=== PATIENT | male | born 1935 | race Caucasian/White ===

== ENCOUNTER → 2018-06-26 | Outpatient (CLI) | payer MEDICARE, BC ==
--- NOTE | 2018-06-26 18:31 | XR ---
EXAMINATION TYPE: XR chest 2V DATE OF EXAM: 06/26/2018 COMPARISON: 02/22/2014 TECHNIQUE: PA and lateral views submitted. HISTORY: Cough and congestion FINDINGS: Heart is enlarged and is atherosclerotic change aorta. Cardiac device seen. Coarsened interstitium se en. No pleural effusion or consolidation. Diffuse osteopenia noted. Vascular calcification seen. Dege nerative change spine. Ectasia of the aorta. Arthropathy of the shoulders. IMPRESSION: 1. Coarsened interstitium may been the basis of chronic interstitial lung disease such as pulmonary f ibrosis. Correlate clinically to exclude interstitial pneumonitis. No definite focal area of consolid ative process.
== END | disposition home or self-care (01) ==
LOC: RADXRMAIN 15:58
PROVIDERS: ATTEND Internal Medicine
DX: R05 Cough (principal); J44.9 Chronic obstructive pulmonary disease, unspecified
CPT/HCPCS: 71046

== ENCOUNTER 2018-08-24 18:28 | Inpatient (IN) | payer MEDICARE, BC ==
[2018-08-24] MEDS ORDERED: IPRATROPIUM-ALBUTEROL 3 ML NEB INHALATION STA (19:31)
[2018-08-24] MEDS ORDERED: SODIUM CHLORIDE 0.9% 1,000 ML IV STA (19:31)
[2018-08-24] MEDS ORDERED: PANTOPRAZOLE 40 MG/10 ML VIAL IVP STA (19:31)
[2018-08-24] MEDS ORDERED: methylPREDNISolone SOD SUCCI 125 MG/2 ML VIAL IV STA (19:31)
[2018-08-24] MEDS ORDERED: IPRATROPIUM-ALBUTEROL 3 ML NEB INHALATION PRN (19:31)
--- NOTE | 2018-08-24 19:33 | ED ---
Weakness HPI - General Chief complaint: Weakness Stated complaint: loss of appetite, coughing up blood, falls Time Seen by Provider: 08/24/18 19:31 Source: patient, family, RN notes reviewed, old records reviewed Mode of arrival: wheelchair Limitations: physical limitation - History of Present Illness Initial comments: This is a 83-year-old male the ER for evaluation. Patient resents today for evaluation of hemoptysis, coughing up blood. Patient is on blood thinners, Coumadin. No recent Coumadin evaluation or checkup. No recent travel history no sick contacts. Does admit to mild shortness of breath and weakness. MD Complaint: generalized weakness Location: generalized Severity: moderate Severity scale (1-10): 6 Quality: aching Consistency: constant Improves with: none Worsens with: none Context: history of similar Associated Symptoms: nausea/vomiting, shortness of breath - Related Data Home Medications Medication Instructions Recorded Confirmed Finasteride [Proscar] 5 mg PO PC-SUPPER 01/10/14 08/24/18 Lisinopril-Hctz 20-12.5 mg 1 each PO DAILY 01/10/14 08/24/18 [Zestoretic 20-12.5] Tamsulosin HCl [Flomax] 0.4 mg PO AC-SUPPER 01/10/14 08/24/18 Warfarin [Coumadin] 5 mg PO MOTUWETHFRSA 01/10/14 08/24/18 amLODIPine BESYLATE [Norvasc] 5 mg PO DAILY 01/10/14 08/24/18 metFORMIN HCL [Glucophage] 500 mg PO DAILY 01/10/14 08/25/18 Allopurinol [Zyloprim] 100 mg PO DAILY 08/24/18 08/24/18 Furosemide [Lasix] 20 mg PO DAILY 08/24/18 08/24/18 Spironolactone [Aldactone] 12.5 mg PO Q48H 08/24/18 08/24/18 Allergies Allergy/AdvReac Type Severity Reaction Status Date / Time No Known Allergies Allergy Verified 08/24/18 20:03 Review of Systems ROS Statement: Those systems with pertinent positive or pertinent negative responses have been documented in the HPI. ROS Other: All systems not noted in ROS Statement are negative. Past Medical History Past Medical History: Coronary Artery Disease (CAD), COPD, CVA/TIA, Memory Impairment Additional Past Medical History / Comment(s): mACULAR DEGENERATION, home oxygen as needed History of Any Multi-Drug Resistant Organisms: None Reported Past Surgical History: Cholecystectomy, Heart Catheterization, Pacemaker Additional Past Surgical History / Comment(s): PTCA Past Anesthesia/Blood Transfusion Reactions: No Reported Reaction Past Psychological History: Anxiety Smoking Status: Current every day smoker Past Alcohol Use History: None Reported Past Drug Use History: None Reported - Past Family History Father Additional Family Medical History / Comment(s): per pt's daughter the grandfather of old age General Exam Limitations: physical limitation General appearance: alert, in no apparent distress Head exam: Present: atraumatic, normocephalic, normal inspection Eye exam: Present: normal appearance, PERRL, EOMI. Absent: scleral icterus, c onjunctival injection, periorbital swelling ENT exam: Present: normal exam, mucous membranes moist Neck exam: Present: normal inspection. Absent: tenderness, meningismus, lymphadenopathy Respiratory exam: Present: normal lung sounds bilaterally. Absent: respiratory distress, wheezes, rales, rhonchi, stridor Cardiovascular Exam: Present: regular rate, normal rhythm, normal heart sounds. Absent: systolic murmur, diastolic murmur, rubs, gallop, clicks GI/Abdominal exam: Present: soft, normal bowel sounds. Absent: distended, tenderness, guarding, rebound, rigid Extremities exam: Present: normal inspection, full ROM, normal capillary refill. Absent: tenderness, pedal edema, joint swelling, calf tenderness Back exam: Present: normal inspection Neurological exam: Present: alert, oriented X3, CN II-XII intact Psychiatric exam: Present: normal affect, normal mood Skin exam: Present: warm, dry, intact, normal color. Absent: rash Course Vital Signs 08/24/18 08/24/18 08/24/18 19:22 20:41 20:57 Temperature 97.4 F L Pulse Rate 76 64 60 Respiratory 16 Rate Blood Pressure 72/47 O2 Sat by Pulse 87 L Oximetry 08/24/18 08/24/18 08/24/18 21:27 22:46 23:22 Temperature Pulse Rate 78 61 Respiratory 16 16 Rate Blood Pressure 100/56 88/43 89/38 O2 Sat by Pulse 97 92 L Oximetry 08/24/18 08/24/18 23:32 23:40 Temperature Pulse Rate Respiratory Rate Blood Pressure 90/37 90/37 O2 Sat by Pulse Oximetry - Reevaluation(s) Reevaluation #1: Medical record is reviewed Patient was given treatment with hemoptysis secondary to elevated INR Patient will be given diuresis and continued breathing treatments for monitoring of cardiopulmonary status Medical Decision Making - Medical Decision Making 83 male the ER for evaluation of shortness of breath and weakness. Hypoxia and CHF. Patient will be admitted - Lab Data Result diagrams: 08/25/18 04:39 08/25/18 04:39 Lab Results 08/24/18 08/24/18 08/24/18 Range/Units 20:05 20:05 20:05 WBC 9.7 (3.8-10.6) k/uL RBC 5.10 (4.30-5.90) m/uL Hgb 15.6 (13.0-17.5) gm/dL Hct 47.4 (39.0-53.0) % MCV 92.9 (80.0-100.0) fL MCH 30.6 (25.0-35.0) pg MCHC 33.0 (31.0-37.0) g/dL RDW 15.9 H (11.5-15.5) % Plt Count 288 (150-450) k/uL Neutrophils % 83 % Lymphocytes % 10 % Monocytes % 5 % Eosinophils % 1 % Basophils % 0 % Neutrophils # 8.0 H (1.3-7.7) k/uL Lymphocytes # 1.0 (1.0-4.8) k/uL Monocytes # 0.5 (0-1.0) k/uL Eosinophils # 0.1 (0-0.7) k/uL Basophils # 0.0 (0-0.2) k/uL PT (9.0-12.0) sec INR (<1.2) APTT (22.0-30.0) sec Sodium 137 (137-145) mmol/L Potassium 2.8 L (3.5-5.1) mmol/L Chloride 92 L (98-107) mmol/L Carbon Dioxide 35 H (22-30) mmol/L Anion Gap 10 mmol/L BUN 54 H (9-20) mg/dL Creatinine 2.44 H (0.66-1.25) mg/dL Est GFR (CKD-EPI)AfAm 27 (>60 ml/min/1.73 sqM) Est GFR (CKD-EPI)NonAf 23 (>60 ml/min/1.73 sqM) Glucose 136 H (74-99) mg/dL Lactic Ac Sepsis Rflx Plasma Lactic Acid Duncan 3.1 H* (0.7-2.0) mmol/L Calcium 8.9 (8.4-10.2) mg/dL Phosphorus 3.8 (2.5-4.5) mg/dL Magnesium 1.9 (1.6-2.3) mg/dL Total Bilirubin 1.5 H (0.2-1.3) mg/dL AST 21 (17-59) U/L ALT 13 L (21-72) U/L Alkaline Phosphatase 100 (38-126) U/L Troponin I (0.000-0.034) ng/mL NT-Pro-B Natriuret Pep pg/mL Total Protein 7.3 (6.3-8.2) g/dL Albumin 3.2 L (3.5-5.0) g/dL TSH 2.800 (0.465-4.680) mIU/L 08/24/18 08/24/18 08/24/18 Range/Units 20:05 20:05 20:05 WBC (3.8-10.6) k/uL RBC (4.30-5.90) m/uL Hgb (13.0-17.5) gm/dL Hct (39.0-53.0) % MCV (80.0-100.0) fL MCH (25.0-35.0) pg MCHC (31.0-37.0) g/dL RDW (11.5-15.5) % Plt Count (150-450) k/uL Neutrophils % % Lymphocytes % % Monocytes % % Eosinophils % % Basophils % % Neutrophils # (1.3-7.7) k/uL Lymphocytes # (1.0-4.8) k/uL Monocytes # (0-1.0) k/uL Eosinophils # (0-0.7) k/uL Basophils # (0-0.2) k/uL PT 104.8 H (9.0-12.0) sec INR >10.0 H* (<1.2) APTT 54.6 H (22.0-30.0) sec Sodium (137-145) mmol/L Potassium (3.5-5.1) mmol/L Chloride (98-107) mmol/L Carbon Dioxide (22-30) mmol/L Anion Gap mmol/L BUN (9-20) mg/dL Creatinine (0.66-1.25) mg/dL Est GFR (CKD-EPI)AfAm (>60 ml/min/1.73 sqM) Est GFR (CKD-EPI)NonAf (>60 ml/min/1.73 sqM) Glucose (74-99) mg/dL Lactic Ac Sepsis Rflx Plasma Lactic Acid Duncan (0.7-2.0) mmol/L Calcium (8.4-10.2) mg/dL Phosphorus (2.5-4.5) mg/dL Magnesium (1.6-2.3) mg/dL Total Bilirubin (0.2-1.3) mg/dL AST (17-59) U/L ALT (21-72) U/L Alkaline Phosphatase (38-126) U/L Troponin I 0.028 (0.000-0.034) ng/mL NT-Pro-B Natriuret Pep 1550 pg/mL Total Protein (6.3-8.2) g/dL Albumin (3.5-5.0) g/dL TSH (0.465-4.680) mIU/L 08/24/18 Range/Units 20:47 WBC (3.8-10.6) k/uL RBC (4.30-5.90) m/uL Hgb (13.0-17.5) gm/dL Hct (39.0-53.0) % MCV (80.0-100.0) fL MCH (25.0-35.0) pg MCHC (31.0-37.0) g/dL RDW (11.5-15.5) % Plt Count (150-450) k/uL Neutrophils % % Lymphocytes % % Monocytes % % Eosinophils % % Basophils % % Neutrophils # (1.3-7.7) k/uL Lymphocytes # (1.0-4.8) k/uL Monocytes # (0-1.0) k/uL Eosinophils # (0-0.7) k/uL Basophils # (0-0.2) k/uL PT (9.0-12.0) sec INR (<1.2) APTT (22.0-30.0) sec Sodium (137-145) mmol/L Potassium (3.5-5.1) mmol/L Chloride (98-107) mmol/L Carbon Dioxide (22-30) mmol/L Anion Gap mmol/L BUN (9-20) mg/dL Creatinine (0.66-1.25) mg/dL Est GFR (CKD-EPI)AfAm (>60 ml/min/1.73 sqM) Est GFR (CKD-EPI)NonAf (>60 ml/min/1.73 sqM) Glucose (74-99) mg/dL Lactic Ac Sepsis Rflx Y Plasma Lactic Acid Duncan (0.7-2.0) mmol/L Calcium (8.4-10.2) mg/dL Phosphorus (2.5-4.5) mg/dL Magnesium (1.6-2.3) mg/dL Total Bilirubin (0.2-1.3) mg/dL AST (17-59) U/L ALT (21-72) U/L Alkaline Phosphatase (38-126) U/L Troponin I (0.000-0.034) ng/mL NT-Pro-B Natriuret Pep pg/mL Total Protein (6.3-8.2) g/dL Albumin (3.5-5.0) g/dL TSH (0.465-4.680) mIU/L - EKG Data -: EKG Interpreted by Me (Paced rhythm rate of 65 QRS 70, QTc 540) - Radiology Data Radiology results: report reviewed (Chest x-ray positive for CHF), image reviewed Critical Care Time Critical Care Time: Yes Total Critical Care Time: 31 Disposition Clinical Impression: Hemoptysis, COPD exacerbation, Hypoxia, Dehydration, Hypokalemia, Weakness, ARF (acute renal failure), CHF (congestive heart failure) Disposition: ADMITTED IP TO THIS HOSP Condition: Fair Is patient prescribed a controlled substance at d/c from ED?: No
[2018-08-24 20:33] LABS: Basophils % (A) 0 %; Eosinophils # (A) 0.1 k/uL (0-0.7); Eosinophils % (A) 1 %; HCT 47.4 % (39.0-53.0); HGB 15.6 gm/dL (13.0-17.5); Lymphocytes % (A) 10 %; MCH 30.6 pg (25.0-35.0); MCV 92.9 fL (80.0-100.0); Mean Platelet Volume 6.8; Monocytes # (A) 0.5 k/uL (0-1.0); Monocytes % (A) 5 %; Neutrophils % (A) 83 %; Platelet Count 288 k/uL (150-450); RDW 15.9 % (11.5-15.5); WBC 9.7 k/uL (3.8-10.6)
[2018-08-24 20:43] LABS: Albumin 3.2 g/dL (3.5-5.0); Calcium 8.9 mg/dL (8.4-10.2); Magnesium 1.9 mg/dL (1.6-2.3); Phosphorus 3.8 mg/dL (2.5-4.5); Potassium 2.8 mmol/L (3.5-5.1); Total Bilirubin 1.5 mg/dL (0.2-1.3); Total Protein 7.3 g/dL (6.3-8.2)
[2018-08-24 20:50] LABS: Prothrombin Time 104.8 sec (9.0-12.0)
[2018-08-24 20:52] LABS: INR >10.0 (<1.2); Partial Thromboplastin Time 54.6 sec (22.0-30.0)
[2018-08-24] MEDS ORDERED: POTASSIUM CHLORIDE ER 20 MEQ TAB.ER PO STA (21:09)
[2018-08-24] MEDS ORDERED: POTASSIUM CHLORIDE ER 10 MEQ TAB.ER.PRT PO STA (21:09)
[2018-08-24] MEDS ORDERED: POTASSIUM CHLORIDE 20 MEQ in WATER FOR INJECTION 1 100ML.BAG IVPB STA (21:09)
[2018-08-24] MEDS ORDERED: PHYTONADIONE ORAL 5 MG/5 ML ORAL.SYRG PO STA (21:09)
--- NOTE | 2018-08-24 21:18 | XR ---
EXAMINATION TYPE: XR chest 2V DATE OF EXAM: 08/24/2018 COMPARISON: 06/26/2018 HISTORY: Weakness TECHNIQUE: Frontal and lateral views of the chest are obtained. FINDINGS: Heart is enlarged. There is some mild infiltrate or atelectasis at the right lung base. Th ere is coarsening of the lung markings. There is no gross heart failure. There is a left axillary pac emaker. IMPRESSION: There is new Mild atelectasis at the right lung base compared to old exam. Pulmonary fibr osis. No overt heart failure.
[2018-08-24] MEDS: SODIUM CHLORIDE 0.9% 1,000 ML IV SCH (22:12)
[2018-08-24 22:32] LABS: Appearance,Urine Cloudy (Clear); Bilirubin,Urine Negative (Negative); Blood,Urine Trace (Negative); Color,Urine Dark Brown; Glucose,Urine (UA) Negative (Negative); Hyaline Casts,Urine 27 /lpf (0-2); Ketones,Urine Negative (Negative); Leukocyte Esterase,Urine Negative (Negative); Mucus,Urine Occasional /hpf; Nitrite,Urine Negative (Negative); Protein,Urine Trace (Negative); RBC,Urine 6 /hpf (0-5); Specific Gravity,Urine 1.018 (1.001-1.035); Squamous Epithelial Cell,Urine 1 /hpf (0-4); WBC,Urine 1 /hpf (0-5)
[2018-08-24] MEDS ORDERED: SODIUM CHLORIDE 0.9% 1,000 ML IV ONE (22:57)
[2018-08-24 23:56] LABS: Glucose,Whole Blood 126 mg/dL (75-99)
--- NOTE | 2018-08-25 00:26 | P.HPIM ---
History of Present Illness H&P Date: 08/25/18 Chief Complaint: lethargy and increased ability 83-year-old male with history of multiple strokes questionable A. fib status post pacemaker on Coumadin History is obtained by talking to patient daughter's patient is unable to provide any meaningful history at this point whether patient was able to deny any chest pain or trouble breathing at this time. Reliability is questionable. The daughter's patient lives alone he is not compliant with medications. He was brought to the hospital due to increased ability and lethargy. Patient daughter's reports hemoptysis and coughing for over a year now along with significant amount of weight loss. Patient has also been complaining of dysphagia and odynophagia with decreased by mouth intake. She reports anoscopy done more than 8 years ago and was normal per her report.patient has history of heavy smoking he quit around 2-3 weeks ago as he was unable to smoke anymore due to breathing difficulties he is on 2.5 L of home oxygen however he is not using. Patient daughter reports hemoptysis consistent of bright red sometimes dark clotted chunks of blood. Patient also has DuoNeb's at home as a rescue nebulizer. She also reported voice changes over the past year but she is not sure was done for that. Patient lives alone and is very hard to get him in to appointments and to be compliant with his medications and care. Due to patient's resistant help. However overall he's been having progressive decline for which she was brought to the hospital for further evaluation today. She also reports frequent falling he is on Coumadin and she doesn't know the doses that and how much the patient is taking at this time. In the ED patientwas initially hypoxic improved with nasal cannula oxygen. He was also hypotensive responding to IV fluid boluses with normal saline 1 L at time. Review of Systems ROS unobtainable: due to mental status Past Medical History Past Medical History: Coronary Artery Disease (CAD), COPD, CVA/TIA, Memory Impairment Additional Past Medical History / Comment(s): mACULAR DEGENERATION, home oxygen as needed History of Any Multi-Drug Resistant Organisms: None Reported Past Surgical History: Cholecystectomy, Heart Catheterization, Pacemaker Additional Past Surgical History / Comment(s): PTCA Past Anesthesia/Blood Transfusion Reactions: No Reported Reaction Past Psychological History: Anxiety Smoking Status: Current every day smoker Past Alcohol Use History: None Reported Past Drug Use History: None Reported - Past Family History Father Additional Family Medical History / Comment(s): per pt's daughter the grandfather of old age Medications and Allergies Home Medications Medication Instructions Recorded Confirmed Type Finasteride [Proscar] 5 mg PO PC-SUPPER 01/10/14 08/24/18 History Lisinopril-Hctz 20-12.5 mg 1 each PO DAILY 01/10/14 08/24/18 History [Zestoretic 20-12.5] Tamsulosin HCl [Flomax] 0.4 mg PO AC-SUPPER 01/10/14 08/24/18 History Warfarin [Coumadin] 5 mg PO MOTUWETHFRSA 01/10/14 08/24/18 History amLODIPine BESYLATE [Norvasc] 5 mg PO DAILY 01/10/14 08/24/18 History metFORMIN HCL [Glucophage] 500 mg PO BID 01/10/14 08/24/18 History Allopurinol [Zyloprim] 100 mg PO DAILY 08/24/18 08/24/18 History Furosemide [Lasix] 20 mg PO DAILY 08/24/18 08/24/18 History Spironolactone [Aldactone] 12.5 mg PO Q48H 08/24/18 08/24/18 History Allergies Allergy/AdvReac Type Severity Reaction Status Date / Time No Known Allergies Allergy Verified 08/24/18 20:03 Physical Exam Vitals: Vital Signs Temp Pulse Resp BP Pulse Ox 08/24/18 22:46 61 16 88/43 92 L 08/24/18 21:27 78 16 100/56 97 08/24/18 20:57 60 08/24/18 20:41 64 08/24/18 19:22 97.4 F L 76 16 72/47 87 L Intake and Output 08/24/18 08/24/18 08/25/18 14:59 22:59 06:59 Output Total 20 Balance -20 Output: Urine 20 Other: Weight 80.739 kg Constitutional: patient opens eyes to verbal stimulation and engages and minimal conversation , lethargic but easily arousable, does not seem to be in any acute distress Eyes: Anicteric sclerae, moist conjunctiva, no lid-lag Pupils equal round reactive to light ENMT: NC/AT Oropharynx dry mucous membranes and dried blood in the oropharynxno exudate Neck: Supple, FROM, no masses, or JVD No carotid bruits No thyromegaly Lungs: bowel chest, diminished breath sounds at lung bases>poor effort from the patient increased tone of percussion Normal respiratory effort, no accessory muscle use Cardiovascular: Heart distant heart sounds regular rate and rhythm systolic murmurs, no gallops, or rubs slightly swollen and rright leg compared to left leg Abdominal: Soft Nontender, no guarding, rebound or rigidity Abdomen moving with respiration Normoactive bowel sounds No hepatomegaly, No splenomegaly No palpable mass No abdominal wall hernia noted Skin: Normal temperature, tone, texture, turgor No induration No subcutaneous nodules chronic skin changes of bilateral arreola with dry skin. right leg warm to the touch with increase reddness compared to left leg Extremities: No digital cyanosis No clubbing Pedal pulses intact and symmetrical Radial pulses intact and symmetrical Tenderness to palpation over the right calf Psychiatric: lethargic but easily arousable unable to assess otherwiset Neuro exam overall is nonfocal the patient failed to cooperate fully due to mental status Lymphatics: no palpable cervical or supraclavicular , or inguinal lymph nodes Results CBC & Chem 7: 08/24/18 20:05 08/24/18 20:05 Labs: Abnormal Lab Results - Last 24 Hours (Table) 08/24/18 08/24/18 08/24/18 Range/Units 20:05 20:05 20:05 RDW 15.9 H (11.5-15.5) % Neutrophils # 8.0 H (1.3-7.7) k/uL PT (9.0-12.0) sec INR (<1.2) APTT (22.0-30.0) sec Potassium 2.8 L (3.5-5.1) mmol/L Chloride 92 L (98-107) mmol/L Carbon Dioxide 35 H (22-30) mmol/L BUN 54 H (9-20) mg/dL Creatinine 2.44 H (0.66-1.25) mg/dL Glucose 136 H (74-99) mg/dL Plasma Lactic Acid Duncan 3.1 H* (0.7-2.0) mmol/L Total Bilirubin 1.5 H (0.2-1.3) mg/dL ALT 13 L (21-72) U/L Albumin 3.2 L (3.5-5.0) g/dL Urine Protein (Negative) Urine Blood (Negative) Urine RBC (0-5) /hpf Hyaline Casts (0-2) /lpf Urine Mucus (None) /hpf 08/24/18 08/24/18 Range/Units 20:05 21:55 RDW (11.5-15.5) % Neutrophils # (1.3-7.7) k/uL PT 104.8 H (9.0-12.0) sec INR >10.0 H* (<1.2) APTT 54.6 H (22.0-30.0) sec Potassium (3.5-5.1) mmol/L Chloride (98-107) mmol/L Carbon Dioxide (22-30) mmol/L BUN (9-20) mg/dL Creatinine (0.66-1.25) mg/dL Glucose (74-99) mg/dL Plasma Lactic Acid Duncan (0.7-2.0) mmol/L Total Bilirubin (0.2-1.3) mg/dL ALT (21-72) U/L Albumin (3.5-5.0) g/dL Urine Protein Trace H (Negative) Urine Blood Trace H (Negative) Urine RBC 6 H (0-5) /hpf Hyaline Casts 27 H (0-2) /lpf Urine Mucus Occasional H (None) /hpf Assessment and Plan Assessment: 83-year-old male with history of stroke, questionable history of A. fib status post pacemaker, diabetes, hypertension. Patient admitted as an inpatient with anticipated length of stay more than 48 hours due to Coumadin toxicity,generalized lethargy, acute kidney injury, acute dehydration, debility, weight loss and hemoptysis. patient lives alone and has daughters think that he is failing to take care of himself is been declining over the past year. With weight loss. Appetite noncompliance with medications. Patient daughter reports more than 1 year history of coughing up blood and weight loss with decreased appetite and changes in his voice. He was brought into the hospital today to the increased debility and lethargy. Plan: acute metabolic encephalopathy secondary to uremia Acute kidney injury secondary to prerenal ATN from dehydration, with oliguria Dehydration secondary to poor by mouth intake secondary to dysphagia Dysphagia and changes in his voice Hemoptysis and weight loss of more than 1 year duration Lactic acidosis secondary to dehydration and poor perfusion Hypotension Coumadin toxicity with supratherapeutic INR Hypokalemia slightly elevated bilirubin possible cellulitis of right leg plan Patient will be admitted stepdown unit for close monitoring Aggressive IV fluid hydration with 2 L normal saline boluses and continue normal saline infusion Follow up labs in the morning Coumadin level reversed with vitamin K check PT/INR in the morning no active overt bleeding Hemoglobin stable possibly will trend down after rehydration due to currently dehydrated status Follow-up renal function and avoid nephrotoxic meds All home blood pressure medications and hold due to hypotension Coumadin on hold Insulin sliding scale Consult GI for dysphagia patient had a colonoscopy 8 years ago was reported to be normal per family Consult ENT due to changes in voice and dysphagia Check computed tomography scan of the chest to rule out lung cancer Family denies any exposure to TB Follow-up lactic acid level Follow-up potassium level replace IV Straight cath showed less than 60 mL of urine was likely due to dehydration versus oliguria consider nephrology consult if no improvement in renal function or urine output closely monitoring for now clinical COPD for which steroids and breathing treatments initiated no focus of infection at this point no antibiotics were initiated Follow-up cultures check venous duplex right leg for DVT IV rocephine for possible cellulitis of right leg Chronic conditions Questionable history of A. fib status post pacemaker, on Coumadin history of multiple strokes diabetes mellitus Hypertension DVT prophylaxis currently supratherapeutic Coumadin on hold Surrogate decision-maker: patient daughter CODE STATUS:no code Discussed with: Patient, ER, RN Anticipated discharge: 48-[address]: SNF A total of 70 minutes was spent on the care of this complex patient more than 50% of the time was spent in counseling and care coordination.
[2018-08-25] MEDS: methylPREDNISolone SOD SUCCI 125 MG/2 ML VIAL IV SCH ×5 (00:57→23:13)
[2018-08-25 04:53] LABS: Basophils % (A) 0 %; Eosinophils % (A) 0 %; HCT 43.9 % (39.0-53.0); HGB 14.5 gm/dL (13.0-17.5); Lymphocytes # (A) 0.3 k/uL (1.0-4.8); Lymphocytes % (A) 4 %; MCH 31.2 pg (25.0-35.0); MCHC 32.9 g/dL (31.0-37.0); MCV 94.6 fL (80.0-100.0); Mean Platelet Volume 6.8; Monocytes # (A) 0.1 k/uL (0-1.0); Monocytes % (A) 1 %; Neutrophils # (A) 6.5 k/uL (1.3-7.7); Neutrophils % (A) 94 %; Platelet Count 243 k/uL (150-450); RBC 4.65 m/uL (4.30-5.90); RDW 15.8 % (11.5-15.5); WBC 6.9 k/uL (3.8-10.6)
[2018-08-25 05:08] LABS: Albumin 2.7 g/dL (3.5-5.0); Calcium 8.1 mg/dL (8.4-10.2); Total Bilirubin 1.3 mg/dL (0.2-1.3); Total Protein 6.4 g/dL (6.3-8.2)
[2018-08-25 05:31] LABS: Potassium 2.7 mmol/L (3.5-5.1)
[2018-08-25] MEDS ORDERED: Potassium Replacement Protocol 1 EACH MISC MISCELLANE PRN (06:04)
[2018-08-25 06:16] LABS: Glucose,Whole Blood 189 mg/dL (75-99)
[2018-08-25] MEDS: POTASSIUM CHLORIDE 10 MEQ in WATER FOR INJECTION 1 100ML.BAG IVPB SCH ×4 (06:21→11:04)
[2018-08-25] MEDS: INSULIN ASPART (NovoLOG) 100 UNIT/ML VIAL SQ SCH ×4 (06:37→20:36)
[2018-08-25 07:13] LABS: INR 3.2 (<1.2); Partial Thromboplastin Time 41.8 sec (22.0-30.0); Prothrombin Time 31.3 sec (9.0-12.0)
[2018-08-25] MEDS: SODIUM CHLORIDE 0.9% 1,000 ML IV SCH ×3 (07:57→20:37)
[2018-08-25] MEDS: IPRATROPIUM-ALBUTEROL 3 ML NEB INHALATION SCH ×4 (08:50→20:06)
[2018-08-25] MEDS ORDERED: PANTOPRAZOLE 40 MG/10 ML VIAL IVP SCH (09:00)
--- NOTE | 2018-08-25 10:40 | US ---
EXAMINATION TYPE: US venous doppler duplex LE RT DATE OF EXAM: 08/25/2018 9:48 AM COMPARISON: NONE CLINICAL HISTORY: r/o DVT, swelling with erythema, red. Right leg swelling, warm, redness SIDE PERFORMED: Right TECHNIQUE: The lower extremity deep venous system is examined utilizing real time linear array sonog [place] with graded compression, doppler sonography and color-flow sonography. VESSELS IMAGED: External Iliac Vein (EIV) Common Femoral Vein Deep Femoral Vein Greater Saphenous Vein * Femoral Vein Popliteal Vein Small Saphenous Vein * Proximal Calf Veins (* superficial vessels) There is normal flow, compressibility, vascular waveforms. Right Leg: Appears negative for DVT IMPRESSION: No evident deep venous thrombosis at or above the right knee, follow-up as indicated
[2018-08-25 11:04] VITALS: BMI 26.4
[2018-08-25] MEDS: POTASSIUM BICARBONATE/CIT AC 20 MEQ TABLET.EFF PO ONE ×2 (11:04→11:21)
[2018-08-25] MEDS: MAGNESIUM SULFATE-D5W PMX 1 GM in DEXTROSE/WATER 1 100ML.BAG IVPB SCH ×2 (11:25→12:49)
--- NOTE | 2018-08-25 11:38 | P.CONS ---
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 History obtained from medical records nursing staff patient unable to provide details not good historian. Family reports weight loss changes in voice and odynophagia dysphagia. Present weight 76 kg. Previous weight 5 years ago was 98 kg. Hemoglobin 15.6. Platelet 288. INR greater than 10 received reversal agents presently 3.2. BUN 54. Creatinine 2.4. Chest x-ray pulmonary fibrosis no heart failure. CT chest abdomen and pelvis ordered results pending. Unsure if he's had previous endoscopic exams. Review of Systems Reviewed in obtained from medical records patient unable to report detailed history Constitutional: Denies fever, chills, sweats, weight gain, positive for unintentional weight loss.. HEENT: Negative for migraines, blurred vision or loss, earaches, drainage, tinnitus, oral mucosal lesions, positive for reports of odynophagia dysphagia. Cardiac: Negative for chest pain, arrhythmias, or palpitation. Respiratory: Negative for shortness of breath, positive reports for hemoptysis and cough, cough.. Gastrointestinal: See HPI for pertinent findings. Genitourinary: Negative for hematuria, urgency, frequency, polyuria, dysuria, or penile discharge. Musculoskeletal: Negative for muscle aches, swelling, arthritis, and arthralgias. Neurologic: Negative for stroke or TIA. Endocrine: Negative for thyroid problems. Skin: Negative for rash or itching. Psychiatric: Negative history for depression and anxietyems ROS unobtainable: due to endotracheal tube, due to mental status Past Medical History Past Medical History: Coronary Artery Disease (CAD), COPD, CVA/TIA, Memory Im pairment Additional Past Medical History / Comment(s): mACULAR DEGENERATION, home oxygen as needed History of Any Multi-Drug Resistant Organisms: None Reported Past Surgical History: Cholecystectomy, Heart Catheterization, Pacemaker Additional Past Surgical History / Comment(s): PTCA Past Anesthesia/Blood Transfusion Reactions: No Reported Reaction Type of Cardiac Device: Permanent Pacemaker Device Placement Date:: unknown Past Psychological History: Anxiety Smoking Status: Current every day smoker Past Alcohol Use History: None Reported Past Drug Use History: None Reported - Past Family History Father Additional Family Medical History / Comment(s): per pt's daughter the grandfather of old age Medications and Allergies Home Medications Medication Instructions Recorded Confirmed Type Finasteride [Proscar] 5 mg PO PC-SUPPER 01/10/14 08/24/18 History Lisinopril-Hctz 20-12.5 mg 1 each PO DAILY 01/10/14 08/24/18 History [Zestoretic 20-12.5] Tamsulosin HCl [Flomax] 0.4 mg PO AC-SUPPER 01/10/14 08/24/18 History Warfarin [Coumadin] 5 mg PO MOTUWETHFRSA 01/10/14 08/24/18 History amLODIPine BESYLATE [Norvasc] 5 mg PO DAILY 01/10/14 08/24/18 History metFORMIN HCL [Glucophage] 500 mg PO DAILY 01/10/14 08/25/18 History Allopurinol [Zyloprim] 100 mg PO DAILY 08/24/18 08/24/18 History Furosemide [Lasix] 20 mg PO DAILY 08/24/18 08/24/18 History Spironolactone [Aldactone] 12.5 mg PO Q48H 08/24/18 08/24/18 History Allergies Allergy/AdvReac Type Severity Reaction Status Date / Time No Known Allergies Allergy Verified 08/24/18 20:03 Physical Exam Vitals: Vital Signs Temp Pulse Pulse Resp BP BP Pulse Ox 08/25/18 08:00 97.8 F 64 19 81/37 94 L 08/25/18 03:50 65 19 08/25/18 03:47 98.6 F 65 19 104/50 94 L 08/25/18 00:06 98.9 F 65 20 93/45 91 L 08/25/18 00:00 65 20 08/24/18 23:40 90/37 08/24/18 23:32 90/37 08/24/18 23:22 89/38 08/24/18 22:46 61 16 88/43 92 L 08/24/18 21:27 78 16 100/56 97 08/24/18 20:57 60 08/24/18 20:41 64 08/24/18 19:22 97.4 F L 76 16 72/47 87 L Intake and Output 08/24/18 08/25/18 08/25/18 22:59 06:59 14:59 Intake Total 50 750 Output Total 20 500 Balance 30 250 Intake: Intake, IV Titration 750 Amount Sodium Chloride 0.9% 1, 750 000 ml @ 125 mls/hr IV . Q8H [facility] Rx#:[id number] Oral 50 Output: Urine 20 500 Other: Voiding Method Indwelling Catheter Indwelling Catheter Weight 80.739 kg 76.5 kg General appearance: The patient is alert, to self in no acute distress little restless.. HET: Head is normocephalic and atraumatic. Pupils are equal and reactive. Oropharynx is clear without lesions. Neck: Supple without lymphadenopathy. Trachea midline. Heart: S1 S2. Regular rate and rhythm. Lungs: No scattered rhonchi upper bases dry cough. Abdomen: Soft, nontender, nondistended with bowel sounds. No peritoneal signs. No palpable organomegaly or masses. Extremities: No edema. [place] clear nisreen urine. Neurological: No focal deficits. Strength and sensation are grossly intact. Results CBC & Chem 7: 08/25/18 04:39 08/25/18 04:39 Labs: Abnormal Lab Results - Last 24 Hours (Table) 08/24/18 08/24/18 08/24/18 Range/Units 20:05 20:05 20:05 RDW 15.9 H (11.5-15.5) % Neutrophils # 8.0 H (1.3-7.7) k/uL Lymphocytes # (1.0-4.8) k/uL PT (9.0-12.0) sec INR (<1.2) APTT (22.0-30.0) sec Potassium 2.8 L (3.5-5.1) mmol/L Chloride 92 L (98-107) mmol/L Carbon Dioxide 35 H (22-30) mmol/L BUN 54 H (9-20) mg/dL Creatinine 2.44 H (0.66-1.25) mg/dL Glucose 136 H (74-99) mg/dL POC Glucose (mg/dL) (75-99) mg/dL Plasma Lactic Acid Duncan 3.1 H* (0.7-2.0) mmol/L Calcium (8.4-10.2) mg/dL Total Bilirubin 1.5 H (0.2-1.3) mg/dL ALT 13 L (21-72) U/L Albumin 3.2 L (3.5-5.0) g/dL Urine Protein (Negative) Urine Blood (Negative) Urine RBC (0-5) /hpf Hyaline Casts (0-2) /lpf Urine Mucus (None) /hpf 08/24/18 08/24/18 08/24/18 Range/Units 20:05 21:55 23:54 RDW (11.5-15.5) % Neutrophils # (1.3-7.7) k/uL Lymphocytes # (1.0-4.8) k/uL PT 104.8 H (9.0-12.0) sec INR >10.0 H* (<1.2) APTT 54.6 H (22.0-30.0) sec Potassium (3.5-5.1) mmol/L Chloride (98-107) mmol/L Carbon Dioxide (22-30) mmol/L BUN (9-20) mg/dL Creatinine (0.66-1.25) mg/dL Glucose (74-99) mg/dL POC Glucose (mg/dL) 126 H (75-99) mg/dL Plasma Lactic Acid Duncan (0.7-2.0) mmol/L Calcium (8.4-10.2) mg/dL Total Bilirubin (0.2-1.3) mg/dL ALT (21-72) U/L Albumin (3.5-5.0) g/dL Urine Protein Trace H (Negative) Urine Blood Trace H (Negative) Urine RBC 6 H (0-5) /hpf Hyaline Casts 27 H (0-2) /lpf Urine Mucus Occasional H (None) /hpf 08/25/18 08/25/18 08/25/18 Range/Units 00:04 04:39 04:39 RDW 15.8 H (11.5-15.5) % Neutrophils # (1.3-7.7) k/uL Lymphocytes # 0.3 L (1.0-4.8) k/uL PT (9.0-12.0) sec INR (<1.2) APTT (22.0-30.0) sec Potassium 2.7 L* (3.5-5.1) mmol/L Chloride (98-107) mmol/L Carbon Dioxide (22-30) mmol/L BUN 51 H (9-20) mg/dL Creatinine 2.06 H (0.66-1.25) mg/dL Glucose 178 H (74-99) mg/dL POC Glucose (mg/dL) (75-99) mg/dL Plasma Lactic Acid Duncan 3.7 H* (0.7-2.0) mmol/L Calcium 8.1 L (8.4-10.2) mg/dL Total Bilirubin (0.2-1.3) mg/dL ALT 18 L (21-72) U/L Albumin 2.7 L (3.5-5.0) g/dL Urine Protein (Negative) Urine Blood (Negative) Urine RBC (0-5) /hpf Hyaline Casts (0-2) /lpf Urine Mucus (None) /hpf 08/25/18 08/25/18 08/25/18 Range/Units 04:39 06:15 06:33 RDW (11.5-15.5) % Neutrophils # (1.3-7.7) k/uL Lymphocytes # (1.0-4.8) k/uL PT 31.3 H (9.0-12.0) sec INR 3.2 H (<1.2) APTT 41.8 H (22.0-30.0) sec Potassium (3.5-5.1) mmol/L Chloride (98-107) mmol/L Carbon Dioxide (22-30) mmol/L BUN (9-20) mg/dL Creatinine (0.66-1.25) mg/dL Glucose (74-99) mg/dL POC Glucose (mg/dL) 189 H (75-99) mg/dL Plasma Lactic Acid Duncan 2.4 H* (0.7-2.0) mmol/L Calcium (8.4-10.2) mg/dL Total Bilirubin (0.2-1.3) mg/dL ALT (21-72) U/L Albumin (3.5-5.0) g/dL Urine Protein (Negative) Urine Blood (Negative) Urine RBC (0-5) /hpf Hyaline Casts (0-2) /lpf Urine Mucus (None) /hpf Microbiology - Last 24 Hours (Table) 08/24/18 21:55 Urine Culture - Preliminary Urine,Catheterized CT scan - abdomen: pending Assessment and Plan (1) Dysphagia Narrative/Plan: 83-year-old male presents with a reported history of unintentional weight loss odynophagia dysphagia hemoptysis. Underlying neoplasm possible motility disorder cannot be excluded. Current Visit: Yes Status: Acute Code(s): R13.10 - DYSPHAGIA, UNSPECIFIED SNOMED Code(s): 24000949 (2) Hemoptysis Current Visit: Yes Status: Acute Code(s): R04.2 - HEMOPTYSIS SNOMED Code(s): 96347637 (3) Decreased oral intake Current Visit: Yes Status: Acute Code(s): R63.8 - OTHER SYMPTOMS AND SIGNS CONCERNING FOOD AND FLUID INTAKE SNOMED Code(s): 740307042 (4) Weight loss, non-intentional Current Visit: Yes Status: Acute Code(s): R63.4 - ABNORMAL WEIGHT LOSS SNOMED Code(s): 599978496 Plan: 1. CT chest abdomen and pelvis will review based on findings we'll consider EGD during this admission once INR 1.8 or less. Patient is not a candidate for inpatient colonoscopy at this time considering his underlying dysphagia odynopha oh. Venous Dopplers reviewed no evidence of DVT. CBC monitoring. 2. GI prophylaxis. Thank you for this kind referral and the opportunity to participate in the care of your patient. This consultation was discussed with Dr. Cox. The impression and plan of care have been directed as dictated.
[2018-08-25 11:46] LABS: Glucose,Whole Blood 135 mg/dL (75-99)
--- NOTE | 2018-08-25 13:04 | CT ---
EXAMINATION TYPE: CT ChestAbdPelvis wo con DATE OF EXAM: 08/25/2018 COMPARISON: Chest radiograph 08/24/2018 HISTORY: 83-year-old male with dysphagia, weight loss, Weakness, COPD, hemoptysis TECHNIQUE: Contiguous axial scanning of the chest, abdomen, and pelvis without IV contrast. Coronal a nd sagittal reconstructions performed. CT DLP: 648.3 mGycm Automated exposure control for dose reduction was used. FINDINGS: Chest: There is prominent motion artifact at the level of the thoracic inlet. Unable to exclude abnormal mur al-based opacity within the upper trachea, refer to axial images 5 and 6. Subcentimeter hypodense nodule right lobe of the thyroid gland. Heart is moderately enlarged. Left anterior chest wall pacemaker generator with right ventricular valentina d. Extensive coronary artery calcifications. Ascending aorta is ectatic at 3.7 cm and upper descending thoracic aorta mildly aneurysmal at 3.4 cm. Moderate to severe atherosclerotic calcifications are present. Large caliber to the main right and left pulmonary arteries at 3.2 and 2.0 cm, respectively, suggesti ng underlying pulmonary arterial hypertension. Scattered nonenlarged mediastinal lymph nodes are present. Borderline sized 1.0 cm lymph node is note d at the right tracheobronchial angle. There is prominent mottled debris within the lower right bronchus intermedius extending into the righ t bronchus base with. Trace right pleural effusion is demonstrated. There is background of moderate to advanced emphysema. Mild septal lines and some patchy dependent bi lateral lateral opacities. ABDOMEN: Noncontrast appearance of the liver, adrenal glands, spleen, and atrophic pancreas are no gross adeno richard. Bilateral renal lesions, approximately 3 on the right measuring 3.6 cm, 2.6 cm, and 1.4 cm. These are indeterminate on this noncontrast study but probably represent cysts. There is one tiny lesion in th e upper pole left kidney measuring 1.4 cm. No dilated small bowel, free fluid, or free air. However, mild diffuse anasarca type changes present with strandy edema in the subcutaneous adipose tissues and intra-abdominal fat. Lack of IV contrast and motion artifacts limit assessment for lymphadenopathy. No obvious lymphadenop athy seen. Tiny fatty umbilical hernia. Scattered mild stool. Sigmoid diverticulosis. No pericolic inflammatory change seen. Moderate to severe atherosclerotic calcifications within the abdominal aorta and iliac arteries. 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 Infrarenal abdominal aorta is aneurysmal at 3.5 cm. 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 Left internal iliac artery is aneurysmal at 2.3 cm. Right common iliac artery is diffusely aneurysmal at 2.0 cm and right internal iliac artery at 1.7 cm . Pelvis: Circumferential bladder wall thickening. Zavala catheter is in place. Prominent nondependent air in th e bladder lumen. There is trace pelvic free fluid. No pelvic lymphadenopathy seen. Bones: Degenerative changes of the hips and throughout the visualized spine. IMPRESSION: CHEST: 1. CARDIOMEGALY, CAD, PULMONARY ARTERIAL HYPERTENSION, SEPTAL LINES, MILD DIFFUSE ANASARCA CHANGE, AN D TRACE RIGHT EFFUSION. CORRELATE FOR MILD CHF WITH PULMONARY VASCULAR CONGESTION. 2. HOWEVER, THERE IS PROMINENT DEBRIS WITHIN THE RIGHT BRONCHUS INTERMEDIUS AND BRONCHUS BASALIS. POO RLY CLEARED SECRETIONS VERSUS IMMINENT ASPIRATION ARE IN THE DIFFERENTIAL. 3. MOTION ARTIFACT AT THE THORACIC INLET. UNABLE TO EXCLUDE A MURAL BASED LESION ALONG THE UPPER TRAC HEAL WALL, REFER TO AXIAL IMAGE 5 AND 6. DIRECT VISUALIZATION MAY BE INDICATED VERSUS CONTRAST-ENHANC ED CT OF THE NECK WHEN PATIENT'S CONDITION HAS IMPROVED. ABDOMEN: 4. DIFFUSELY ANEURYSMAL AORTA (DESCENDING THORACIC 3.4 CM, UPPER ABDOMINAL 3.3 CM, INFRARENAL 3.5 CM) . 5. ADDITIONAL ANEURYSMS OF THE ILIAC ARTERIES ABOVE, LARGEST ANEURYSM OF THE LEFT COMMON ILIAC ART MICHAEL AT 3.6 CM AND LEFT INTERNAL ILIAC ARTERY AT 2.3 CM. SEE ABOVE. 6. BILATERAL RENAL LESIONS MEASURING UP TO 3.6 CM INCOMPLETELY CHARACTERIZED, LIKELY REPRESENT CYS 7. SIGMOID DIVERTICULOSIS. PELVIS: 8. MODERATE CIRCUMFERENTIAL BLADDER WALL THICKENING COULD REPRESENT CHRONIC BLADDER WALL HYPERTROPHY. CORRELATE TO EXCLUDE CYSTITIS. A ZAVALA CATHETER IS IN PLACE. BLADDER AIR LIKELY DUE TO INSTRUMENTATI ON. 9. TRACE PELVIC ASCITES SUSPECTED TO BE DUE TO FLUID OVERLOAD STATE.
[2018-08-25] MEDS ORDERED: POTASSIUM CHLORIDE 20 MEQ in WATER FOR INJECTION 1 100ML.BAG IVPB STA (15:08)
[2018-08-25 16:46] LABS: Glucose,Whole Blood 200 mg/dL (75-99)
--- NOTE | 2018-08-25 16:54 | P.GSCN ---
History of Present Illness Consult date: 08/25/18 Reason for Consult: Hoarseness dysphagia Requesting physician: Ailyn Eldridge History of present illness: This is an 83-year-old white male who is a very poor historian. I'm obtaining the history from his son was also very poor historian. He tells me that his sisters and more engaged in this patient's medical care. He does note that his hoarseness is been present for about 2 months and his dysphagia has been a probl em for about the same amount of time. It is painful when he swallows and food gets stuck in his throat. He is almost aphonic. He has a long-standing history of smoking and still smokes AGAINST MEDICAL ADVICE. He has not had any hemoptysis. He is very weak and has shortness of breath upon exertion. He is currently being seen by GI and pulmonary. He has a history of COPD. Review of Systems - Constitutional Reports anorexia, Reports fatigue, Reports lethargy, Reports weight loss - EENT Ears, nose, mouth and throat: Reports ant. neck pain, Denies nasal congestion, Denies nasal discharge - Cardiovascular Denies chest pain - Respiratory Reports congestion - Gastrointestinal Denies belching - Genitourinary Reports urinary retention - Musculoskeletal Denies fractures - Integumentary Denies boils - Neurological Denies ataxia - Psychiatric Reports change in appetite - Endocrine Reports fatigue - Hematologic/Lymphatic Denies easy bleeding - Allergic/Immunologic Denies allergic rhinitis Past Medical History Past Medical History: Coronary Artery Disease (CAD), COPD, CVA/TIA, Memory Impairment Additional Past Medical History / Comment(s): mACULAR DEGENERATION, home oxygen as needed History of Any Multi-Drug Resistant Organisms: None Reported Past Surgical History: Cholecystectomy, Heart Catheterization, Pacemaker Additional Past Surgical History / Comment(s): PTCA Past Anesthesia/Blood Transfusion Reactions: No Reported Reaction Type of Cardiac Device: Permanent Pacemaker Device Placement Date:: unknown Past Psychological History: Anxiety Smoking Status: Current every day smoker Past Alcohol Use History: None Reported Past Drug Use History: None Reported - Past Family History Father Additional Family Medical History / Comment(s): per pt's daughter the grandfather of old age Medications and Allergies Home Medications Medication Instructions Recorded Confirmed Type Finasteride [Proscar] 5 mg PO PC-SUPPER 01/10/14 08/24/18 History Lisinopril-Hctz 20-12.5 mg 1 each PO DAILY 01/10/14 08/24/18 History [Zestoretic 20-12.5] Tamsulosin HCl [Flomax] 0.4 mg PO AC-SUPPER 01/10/14 08/24/18 History Warfarin [Coumadin] 5 mg PO MOTUWETHFRSA 01/10/14 08/24/18 History amLODIPine BESYLATE [Norvasc] 5 mg PO DAILY 01/10/14 08/24/18 History metFORMIN HCL [Glucophage] 500 mg PO DAILY 01/10/14 08/25/18 History Allopurinol [Zyloprim] 100 mg PO DAILY 08/24/18 08/24/18 History Furosemide [Lasix] 20 mg PO DAILY 08/24/18 08/24/18 History Spironolactone [Aldactone] 12.5 mg PO Q48H 08/24/18 08/24/18 History Allergies Allergy/AdvReac Type Severity Reaction Status Date / Time No Known Allergies Allergy Verified 08/24/18 20:03 Surgical - Exam Osteopathic Statement: *. No significant issues noted on an osteopathic structural exam other than those noted in the History and Physical/Consult. Vital Signs Temp Pulse Resp BP Pulse Ox 97.4 F L 76 16 72/47 87 L 08/24/18 19:22 08/24/18 19:22 08/24/18 19:22 08/24/18 19:22 08/24/18 19:22 - General moderate pain, cachectic, chronically ill - Eyes PERRL, normal ocular movement - ENT Head is normocephalic the face is symmetric there's no abnormal movements. There is no tenderness to the sinuses are mastoids. Nose is patent no tumors polyps or masses. Mouth and throat mucosa is dry. No oral lesions are noted. Neck unremarkable. Patient is poor voice and is almost aphonic. normal pinna, normal nares, decreased hearing - Neck no masses - Respiratory normal expansion - Integumentary no rash, no growths - Neurologic no disoriented, no combative - Musculoskeletal normal posture - Psychiatric oriented to time, oriented to person, oriented to place, no speech is normal Results - Labs 08/25/18 04:39 08/25/18 13:24 Abnormal Lab Results - Last 24 Hours (Table) 04/08/24/18 08/24/18 Range/Units 20:05 20:05 20:05 RDW 15.9 H (11.5-15.5) % Neutrophils # 8.0 H (1.3-7.7) k/uL Lymphocytes # (1.0-4.8) k/uL PT (9.0-12.0) sec INR (<1.2) APTT (22.0-30.0) sec Potassium 2.8 L (3.5-5.1) mmol/L Chloride 92 L (98-107) mmol/L Carbon Dioxide 35 H (22-30) mmol/L BUN 54 H (9-20) mg/dL Creatinine 2.44 H (0.66-1.25) mg/dL Glucose 136 H (74-99) mg/dL POC Glucose (mg/dL) (75-99) mg/dL Plasma Lactic Acid Duncan 3.1 H* (0.7-2.0) mmol/L Calcium (8.4-10.2) mg/dL Total Bilirubin 1.5 H (0.2-1.3) mg/dL ALT 13 L (21-72) U/L Albumin 3.2 L (3.5-5.0) g/dL Urine Protein (Negative) Urine Blood (Negative) Urine RBC (0-5) /hpf Hyaline Casts (0-2) /lpf Urine Mucus (None) /hpf 08/24/18 08/24/18 08/24/18 Range/Units 20:05 21:55 23:54 RDW (11.5-15.5) % Neutrophils # (1.3-7.7) k/uL Lymphocytes # (1.0-4.8) k/uL PT 104.8 H (9.0-12.0) sec INR >10.0 H* (<1.2) APTT 54.6 H (22.0-30.0) sec Potassium (3.5-5.1) mmol/L Chloride (98-107) mmol/L Carbon Dioxide (22-30) mmol/L BUN (9-20) mg/dL Creatinine (0.66-1.25) mg/dL Glucose (74-99) mg/dL POC Glucose (mg/dL) 126 H (75-99) mg/dL Plasma Lactic Acid Duncan (0.7-2.0) mmol/L Calcium (8.4-10.2) mg/dL Total Bilirubin (0.2-1.3) mg/dL ALT (21-72) U/L Albumin (3.5-5.0) g/dL Urine Protein Trace H (Negative) Urine Blood Trace H (Negative) Urine RBC 6 H (0-5) /hpf Hyaline Casts 27 H (0-2) /lpf Urine Mucus Occasional H (None) /hpf 08/25/18 08/25/18 08/25/18 Range/Units 00:04 04:39 04:39 RDW 15.8 H (11.5-15.5) % Neutrophils # (1.3-7.7) k/uL Lymphocytes # 0.3 L (1.0-4.8) k/uL PT (9.0-12.0) sec INR (<1.2) APTT (22.0-30.0) sec Potassium 2.7 L* (3.5-5.1) mmol/L Chloride (98-107) mmol/L Carbon Dioxide (22-30) mmol/L BUN 51 H (9-20) mg/dL Creatinine 2.06 H (0.66-1.25) mg/dL Glucose 178 H (74-99) mg/dL POC Glucose (mg/dL) (75-99) mg/dL Plasma Lactic Acid Duncan 3.7 H* (0.7-2.0) mmol/L Calcium 8.1 L (8.4-10.2) mg/dL Total Bilirubin (0.2-1.3) mg/dL ALT 18 L (21-72) U/L Albumin 2.7 L (3.5-5.0) g/dL Urine Protein (Negative) Urine Blood (Negative) Urine RBC (0-5) /hpf Hyaline Casts (0-2) /lpf Urine Mucus (None) /hpf 08/25/18 08/25/18 08/25/18 Range/Units 04:39 06:15 06:33 RDW (11.5-15.5) % Neutrophils # (1.3-7.7) k/uL Lymphocytes # (1.0-4.8) k/uL PT 31.3 H (9.0-12.0) sec INR 3.2 H (<1.2) APTT 41.8 H (22.0-30.0) sec Potassium (3.5-5.1) mmol/L Chloride (98-107) mmol/L Carbon Dioxide (22-30) mmol/L BUN (9-20) mg/dL Creatinine (0.66-1.25) mg/dL Glucose (74-99) mg/dL POC Glucose (mg/dL) 189 H (75-99) mg/dL Plasma Lactic Acid Duncan 2.4 H* (0.7-2.0) mmol/L Calcium (8.4-10.2) mg/dL Total Bilirubin (0.2-1.3) mg/dL ALT (21-72) U/L Albumin (3.5-5.0) g/dL Urine Protein (Negative) Urine Blood (Negative) Urine RBC (0-5) /hpf Hyaline Casts (0-2) /lpf Urine Mucus (None) /hpf 08/25/18 08/25/18 08/25/18 Range/Units 08:32 11:42 13:24 RDW (11.5-15.5) % Neutrophils # (1.3-7.7) k/uL Lymphocytes # (1.0-4.8) k/uL PT (9.0-12.0) sec INR (<1.2) APTT (22.0-30.0) sec Potassium 3.1 L (3.5-5.1) mmol/L Chloride (98-107) mmol/L Carbon Dioxide (22-30) mmol/L BUN (9-20) mg/dL Creatinine (0.66-1.25) mg/dL Glucose (74-99) mg/dL POC Glucose (mg/dL) 135 H (75-99) mg/dL Plasma Lactic Acid Duncan 2.8 H* (0.7-2.0) mmol/L Calcium (8.4-10.2) mg/dL Total Bilirubin (0.2-1.3) mg/dL ALT (21-72) U/L Albumin (3.5-5.0) g/dL Urine Protein (Negative) Urine Blood (Negative) Urine RBC (0-5) /hpf Hyaline Casts (0-2) /lpf Urine Mucus (None) /hpf Microbiology - Last 24 Hours (Table) 08/24/18 21:55 Urine Culture - Preliminary Urine,Catheterized Diabetes panel 08/24/18 08/25/18 08/25/18 Range/Units 20:05 04:39 13:24 Sodium 137 138 (137-145) mmol/L Potassium 2.8 L 2.7 L* 3.1 L (3.5-5.1) mmol/L Chloride 92 L 98 (98-107) mmol/L Carbon Dioxide 35 H 30 (22-30) mmol/L BUN 54 H 51 H (9-20) mg/dL Creatinine 2.44 H 2.06 H (0.66-1.25) mg/dL Glucose 136 H 178 H (74-99) mg/dL Calcium 8.9 8.1 L (8.4-10.2) mg/dL AST 21 23 (17-59) U/L ALT 13 L 18 L (21-72) U/L Alkaline Phosphatase 100 86 (38-126) U/L Total Protein 7.3 6.4 (6.3-8.2) g/dL Albumin 3.2 L 2.7 L (3.5-5.0) g/dL Thyroid panel 08/24/18 Range/Units 20:05 TSH 2.800 (0.465-4.680) mIU/L Calcium panel 08/24/18 08/25/18 Range/Units 20:05 04:39 Calcium 8.9 8.1 L (8.4-10.2) mg/dL Phosphorus 3.8 (2.5-4.5) mg/dL Albumin 3.2 L 2.7 L (3.5-5.0) g/dL Pituitary panel 08/24/18 08/25/18 08/25/18 Range/Units 20:05 04:39 13:24 Sodium 137 138 (137-145) mmol/L Potassium 2.8 L 2.7 L* 3.1 L (3.5-5.1) mmol/L Chloride 92 L 98 (98-107) mmol/L Carbon Dioxide 35 H 30 (22-30) mmol/L BUN 54 H 51 H (9-20) mg/dL Creatinine 2.44 H 2.06 H (0.66-1.25) mg/dL Glucose 136 H 178 H (74-99) mg/dL Calcium 8.9 8.1 L (8.4-10.2) mg/dL TSH 2.800 (0.465-4.680) mIU/L Adrenal panel 08/24/18 08/25/18 08/25/18 Range/Units 20:05 04:39 13:24 Sodium 137 138 (137-145) mmol/L Potassium 2.8 L 2.7 L* 3.1 L (3.5-5.1) mmol/L Chloride 92 L 98 (98-107) mmol/L Carbon Dioxide 35 H 30 (22-30) mmol/L BUN 54 H 51 H (9-20) mg/dL Creatinine 2.44 H 2.06 H (0.66-1.25) mg/dL Glucose 136 H 178 H (74-99) mg/dL Calcium 8.9 8.1 L (8.4-10.2) mg/dL Total Bilirubin 1.5 H 1.3 (0.2-1.3) mg/dL AST 21 23 (17-59) U/L ALT 13 L 18 L (21-72) U/L Alkaline Phosphatase 100 86 (38-126) U/L Total Protein 7.3 6.4 (6.3-8.2) g/dL Albumin 3.2 L 2.7 L (3.5-5.0) g/dL Assessment and Plan (1) Laryngeal mass Current Visit: Yes Status: Acute Code(s): J38.7 - OTHER DISEASES OF LARYNX SNOMED Code(s): 44263360 (2) Hoarseness of voice Current Visit: Yes Status: Acute Code(s): R49.0 - DYSPHONIA SNOMED Code(s): 65168794 (3) Dysphagia Current Visit: Yes Status: Acute Code(s): R13.10 - DYSPHAGIA, UNSPECIFIED SNOMED Code(s): 39936490 Plan: 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 He is poorly cooperative with this examination and I'm recommending panendoscopy with biopsy lung with a tracheotomy. His airway appears to be very limited. I will get a CAT scan of the neck without contrast because of his elevated BUN and creatinine. If the airway is large and I suspect we may not do a tracheotomy if his airway is as compromise is a suspect we will be doing a tracheotomy and then panendoscopy with biopsy in evaluation. Patient is also an excellent candidate for a feeding tube and I'm recommending that GI place a feeding tube. I highly suspect that there may be a malignancy. Prognosis is guarded. Time with Patient: Greater than 30
--- NOTE | 2018-08-25 16:56 | P.PCN ---
Date of Procedure: 08/25/18 Preoperative Diagnosis: Hoarseness dysphagia Postoperative Diagnosis: As above with laryngeal mass Procedure(s) Performed: Flexible nasopharyngolaryngoscope Anesthesia: none Surgeon: Tushar Valadez Estimated Blood Loss (ml): 0 Pathology: none sent Condition: stable Disposition: PACU Indications for Procedure: Patient has 2 months of persistent hoarseness dysphagia and odontophagia. 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 Patient is somewhat uncooperative and a complete examination was unable to be performed Description of Procedure: An EF type GP nasopharyngoscope was inserted into the patient's right nares. We followed the floor the nose into the nasopharynx and oropharynx and hypopharynx. The mucosa is very dry. Left vocal cord appeared to be fixed. Irregular vocal cord mass on the left side was apparent. Patient has limited airway although the patient is not stridorous. This laryngeal mass is suspicious for malignancy.
--- NOTE | 2018-08-25 17:35 | P.PN ---
Subjective Progress Note Date: 08/25/18 (delayed charting seen at 0900) Principal diagnosis: coughing up blood Patient is a 83-year-old male with a history of A. fib and multiple strokes status post pacemaker on Coumadin therapy, COPD, CVA, and memory impairment who presented to the ER at direction of his daughter due to increased weakness and lethargy. Patient was also noted to have hemoptysis. In the ER he underwent an extensive evaluation. His son have an INR greater than 10. His potassium was significantly low at 2.8. Creatinine elevated at 2.44, lactic acid 3.1, total bilirubin 1.5, albumin 3.2, and urinalysis was bland. Chest x- ray showed new mild atelectasis of the right lung base. He was also found to be hypoxic and started on nasal cannula. He was hypotensive with a blood pressure 72/47 which responded to 1 L fluid bolus. He was admitted to the selective unit for further monitoring. His given aggressive fluid hydration due to his acute kidney injury. His Coumadin level was reversed with vitamin K. His home medications were held secondary to hypotension. Daughter stated that he's been having weight loss and some dysphasia and therefore his made nothing by mouth and speech was consulted as well as ENT. GI was consulted for dysphagia. Straight cath was done which showed less than 60 mL's of urine was likely secondary to dehydration. CT chest abdomen and pelvis was ordered. Patient seen and examined at bedside. He is slightly confused and no family is present. He has to go home several times during our conversation. He denies any chest pain, shortness of breath, nausea, vomiting, or diarrhea. Explained to him the nature of his dehydration, acute renal failure, and elevated INR levels. Objective - Vital Signs Vital signs: Vital Signs Temp 97.7 F 08/25/18 16:00 Pulse 60 08/25/18 16:07 Resp 18 08/25/18 16:00 BP 86/40 08/25/18 16:00 Pulse Ox 91 L 08/25/18 16:00 Intake & Output 08/24/18 08/25/18 08/25/18 18:59 06:59 18:59 Intake Total 800 1575 Output Total 520 300 Balance 280 1275 Weight 76.5 kg 76.5 kg Intake: Intake, IV Titration 750 1575 Amount Magnesium Sulfate-D5w Pmx 200 1 gm In Dextrose/Water 1 100ml.bag @ 100 mls/hr IVPB Q1H [facility] Rx#: [id number] Potassium Chloride 10 meq 400 In Water For Injection 1 100ml.bag @ 100 mls/hr IVPB Q1HR [facility] Rx#: [id number] Sodium Chloride 0.9% 1, 750 875 000 ml @ 125 mls/hr IV . Q8H [facility] Rx#:[id number] cefTRIAXone 1 gm In 100 Sodium Chloride 0.9% 50 ml @ 100 mls/hr IVPB Q24HR [facility] Rx#:[id number] Oral 50 Output: Urine 520 300 Other: Voiding Method Indwelling Catheter Indwelling Catheter - Exam General: Ill appearing, no distress, appears at stated age Derm: Multiple areas of ecchymoses bilateral hands and arms, warm, dry Head: atraumatic, normocephalic, symmetric Eyes: EOMI, no lid lag, anicteric sclera Mouth: no lip lesion, mucus membranes moist Cardiovascular: S1S2 reg, no murmur, positive posterior tibial pulse bilateral, Lungs: Decreased breath sounds bilateral, no rhonchi, no rales , no accessory muscle use Abdominal: soft, nontender to palpation, no guarding, no appreciable or ganomegaly Ext: no gross muscle atrophy, no edema, no contractures Neuro: CN II-XI grossly intact, no focal neuro deficits Psych: Alert, oriented, appropriate affect - Labs CBC & Chem 7: 08/25/18 04:39 08/25/18 13:24 Labs: Abnormal Lab Results - Last 24 Hours (Table) 08/24/18 08/24/18 08/24/18 Range/Units 20:05 20:05 20:05 RDW 15.9 H (11.5-15.5) % Neutrophils # 8.0 H (1.3-7.7) k/uL Lymphocytes # (1.0-4.8) k/uL PT (9.0-12.0) sec INR (<1.2) APTT (22.0-30.0) sec Potassium 2.8 L (3.5-5.1) mmol/L Chloride 92 L (98-107) mmol/L Carbon Dioxide 35 H (22-30) mmol/L BUN 54 H (9-20) mg/dL Creatinine 2.44 H (0.66-1.25) mg/dL Glucose 136 H (74-99) mg/dL POC Glucose (mg/dL) (75-99) mg/dL Plasma Lactic Acid Duncan 3.1 H* (0.7-2.0) mmol/L Calcium (8.4-10.2) mg/dL Total Bilirubin 1.5 H (0.2-1.3) mg/dL ALT 13 L (21-72) U/L Albumin 3.2 L (3.5-5.0) g/dL Urine Protein (Negative) Urine Blood (Negative) Urine RBC (0-5) /hpf Hyaline Casts (0-2) /lpf Urine Mucus (None) /hpf 08/24/18 08/24/18 08/24/18 Range/Units 20:05 21:55 23:54 RDW (11.5-15.5) % Neutrophils # (1.3-7.7) k/uL Lymphocytes # (1.0-4.8) k/uL PT 104.8 H (9.0-12.0) sec INR >10.0 H* (<1.2) APTT 54.6 H (22.0-30.0) sec Potassium (3.5-5.1) mmol/L Chloride (98-107) mmol/L Carbon Dioxide (22-30) mmol/L BUN (9-20) mg/dL Creatinine (0.66-1.25) mg/dL Glucose (74-99) mg/dL POC Glucose (mg/dL) 126 H (75-99) mg/dL Plasma Lactic Acid Duncan (0.7-2.0) mmol/L Calcium (8.4-10.2) mg/dL Total Bilirubin (0.2-1.3) mg/dL ALT (21-72) U/L Albumin (3.5-5.0) g/dL Urine Protein Trace H (Negative) Urine Blood Trace H (Negative) Urine RBC 6 H (0-5) /hpf Hyaline Casts 27 H (0-2) /lpf Urine Mucus Occasional H (None) /hpf 08/25/18 08/25/18 08/25/18 Range/Units 00:04 04:39 04:39 RDW 15.8 H (11.5-15.5) % Neutrophils # (1.3-7.7) k/uL Lymphocytes # 0.3 L (1.0-4.8) k/uL PT (9.0-12.0) sec INR (<1.2) APTT (22.0-30.0) sec Potassium 2.7 L* (3.5-5.1) mmol/L Chloride (98-107) mmol/L Carbon Dioxide (22-30) mmol/L BUN 51 H (9-20) mg/dL Creatinine 2.06 H (0.66-1.25) mg/dL Glucose 178 H (74-99) mg/dL POC Glucose (mg/dL) (75-99) mg/dL Plasma Lactic Acid Duncan 3.7 H* (0.7-2.0) mmol/L Calcium 8.1 L (8.4-10.2) mg/dL Total Bilirubin (0.2-1.3) mg/dL ALT 18 L (21-72) U/L Albumin 2.7 L (3.5-5.0) g/dL Urine Protein (Negative) Urine Blood (Negative) Urine RBC (0-5) /hpf Hyaline Casts (0-2) /lpf Urine Mucus (None) /hpf 08/25/18 08/25/18 08/25/18 Range/Units 04:39 06:15 06:33 RDW (11.5-15.5) % Neutrophils # (1.3-7.7) k/uL Lymphocytes # (1.0-4.8) k/uL PT 31.3 H (9.0-12.0) sec INR 3.2 H (<1.2) APTT 41.8 H (22.0-30.0) sec Potassium (3.5-5.1) mmol/L Chloride (98-107) mmol/L Carbon Dioxide (22-30) mmol/L BUN (9-20) mg/dL Creatinine (0.66-1.25) mg/dL Glucose (74-99) mg/dL POC Glucose (mg/dL) 189 H (75-99) mg/dL Plasma Lactic Acid Duncan 2.4 H* (0.7-2.0) mmol/L Calcium (8.4-10.2) mg/dL Total Bilirubin (0.2-1.3) mg/dL ALT (21-72) U/L Albumin (3.5-5.0) g/dL Urine Protein (Negative) Urine Blood (Negative) Urine RBC (0-5) /hpf Hyaline Casts (0-2) /lpf Urine Mucus (None) /hpf 08/25/18 08/25/18 08/25/18 Range/Units 08:32 11:42 13:24 RDW (11.5-15.5) % Neutrophils # (1.3-7.7) k/uL Lymphocytes # (1.0-4.8) k/uL PT (9.0-12.0) sec INR (<1.2) APTT (22.0-30.0) sec Potassium 3.1 L (3.5-5.1) mmol/L Chloride (98-107) mmol/L Carbon Dioxide (22-30) mmol/L BUN (9-20) mg/dL Creatinine (0.66-1.25) mg/dL Glucose (74-99) mg/dL POC Glucose (mg/dL) 135 H (75-99) mg/dL Plasma Lactic Acid Duncan 2.8 H* (0.7-2.0) mmol/L Calcium (8.4-10.2) mg/dL Total Bilirubin (0.2-1.3) mg/dL ALT (21-72) U/L Albumin (3.5-5.0) g/dL Urine Protein (Negative) Urine Blood (Negative) Urine RBC (0-5) /hpf Hyaline Casts (0-2) /lpf Urine Mucus (None) /hpf 08/25/18 Range/Units 16:41 RDW (11.5-15.5) % Neutrophils # (1.3-7.7) k/uL Lymphocytes # (1.0-4.8) k/uL PT (9.0-12.0) sec INR (<1.2) APTT (22.0-30.0) sec Potassium (3.5-5.1) mmol/L Chloride (98-107) mmol/L Carbon Dioxide (22-30) mmol/L BUN (9-20) mg/dL Creatinine (0.66-1.25) mg/dL Glucose (74-99) mg/dL POC Glucose (mg/dL) 200 H (75-99) mg/dL Plasma Lactic Acid Duncan (0.7-2.0) mmol/L Calcium (8.4-10.2) mg/dL Total Bilirubin (0.2-1.3) mg/dL ALT (21-72) U/L Albumin (3.5-5.0) g/dL Urine Protein (Negative) Urine Blood (Negative) Urine RBC (0-5) /hpf Hyaline Casts (0-2) /lpf Urine Mucus (None) /hpf Microbiology - Last 24 Hours (Table) 08/24/18 21:55 Urine Culture - Preliminary Urine,Catheterized Assessment and Plan Assessment: Toxic metabolic encephalopathy -Likely secondary to acute kidney injury may be related to dementia -Supportive care -Evaluation and treatment of his acute kidney injury -Check CT brain Supratherapeutic Coumadin coagulopathy -Improved status post vitamin K -Maintain off Coumadin -Repeat INR in the morning Hypokalemia, hypomagnesemia -Likely secondary to dehydration and poor oral intake -Aggressive potassium replacement and magnesium replacement -Follow levels Acute kidney injury secondary to dehydration -Continue with IV fluids -Avoid additional nephrotoxic agents -Await CT abdomen and pelvis to assess for signs of retention -Continue to hold Aldactone, lisinopril, hydrochlorothiazide, and Lasix -Continue Proscar Lactic acidosis -No signs of sepsis and 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 in combination with metformin use -No indication to continue to repeat as it is down trending Diabetes mellitus type 2 -Hold metformin secondary to renal failure -Sliding-scale insulin -Check A1c Hemoptysis, weight loss, and dysphagia -Discussed with speech therapy and failed bedside swallow -Await ENT recommendations: This afternoon underwent bedside nasopharyngeal laryngoscopy with no of left sided vocal cord mass with fixed left vocal cord suspicious for malignancy, await CT neck without contrast -Await GI recommendations -Await CT chest, abdomen, pelvis -Concern is for malignancy Acute on chronic hypoxic respiratory failure -Has not been using his O2 at home -Is supposed to use 2.5 L Severe protein calorie malnutrition associated with weight loss -Supplementation once able to tolerate by mouth's or PEG tube is placed -We'll consult dietitian once able to perform feedings Chronic: Hypertension Coronary artery disease COPD Memory impairment A. fib Recent history of tobacco abuse quit 2-3 days ago Results of CAT scan and Dr. Zuniga's exam were discussed with Katlin his daughter who is his DPOA. She would not want tracheostomy performed or heroic measures. She will update her siblings and we will discuss again in the morning regarding results of computed tomography scan. Katlin [facility]- [phone] DVT prophylaxis: elevated INR Discussed with: Patient and nursing Anticipated discharge: 3-[address]: home A total of 35 minutes was spent on the care of this complex patient more than 50% of the time was spent in counseling and care coordination.
[2018-08-25 17:59] LABS: INR 1.8 (<1.2); Prothrombin Time 17.4 sec (9.0-12.0)
--- NOTE | 2018-08-25 20:02 | CT ---
EXAMINATION: CT brain wo con DATE AND TIME: 08/25/2018 6:16 PM CLINICAL INDICATION: PHH; confusion, vocal cord mass TECHNIQUE: Standard departmental protocol.; 1098.9; COMPARISON: None. FINDINGS: The calvarium is intact. There is no intracranial hemorrhage. There is a 4 cm zone of encephalomalacia in the anterior right frontal lobe consistent with remote in farction. There is no intracranial mass or mass effect. No definite new attenuation defect. The paranasal sinuses, middle ear cavities, and mastoid sinus air cells are clear. The orbits are unremarkable. IMPRESSION: NO DEFINITE ACUTE PROCESS.
[2018-08-25 20:27] LABS: Glucose,Whole Blood 129 mg/dL (75-99)
--- NOTE | 2018-08-25 21:29 | CT ---
EXAMINATION TYPE: CT soft tissue neck wo con DATE OF EXAM: 08/25/2018 HISTORY: Confusion, vocal cord mass. COMPARISON: None CT DLP: 221.7 mGycm. Automated Exposure Control for Dose Reduction was Utilized. TECHNIQUE: Department noncontrast protocol. FINDINGS: Airway: The airway is patent but is irregularly shaped throughout the glottic region. There is an ill -defined glottic soft tissue mass centered left of midline, extending anteriorly into the strap muscl es, laterally through the cartilage, and posteriorly. There is evidence of subtle midline extension b oth anteriorly and posteriorly. There are scattered tiny foci gas related to the left parotid gland a nd duct. Lymph nodes: No adenopathy. Salivary glands: There are scattered tiny foci gas related to the left parotid gland and duct. Carotid/Vascular Structures: Prominent atherosclerotic intimal calcifications are seen throughout the visualized arterial anatomy. Osseous Structures: No acute findings. Other: Focal subcentimeter nodular findings within the thyroid. 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
[2018-08-26 05:30] LABS: Glucose,Whole Blood 146 mg/dL (75-99)
[2018-08-26] MEDS: SODIUM CHLORIDE 0.9% 1,000 ML IV SCH ×2 (05:52→18:06)
[2018-08-26] MEDS: methylPREDNISolone SOD SUCCI 125 MG/2 ML VIAL IV SCH ×4 (05:53→23:01)
[2018-08-26] MEDS: INSULIN ASPART (NovoLOG) 100 UNIT/ML VIAL SQ SCH ×4 (05:55→21:12)
[2018-08-26 06:55] LABS: HCT 42.9 % (39.0-53.0); HGB 14.1 gm/dL (13.0-17.5); MCH 31.2 pg (25.0-35.0); MCHC 32.8 g/dL (31.0-37.0); Mean Platelet Volume 7.1; Platelet Count 217 k/uL (150-450); RBC 4.52 m/uL (4.30-5.90); RDW 15.9 % (11.5-15.5); WBC 9.7 k/uL (3.8-10.6)
[2018-08-26 07:07] LABS: INR 1.3 (<1.2); Prothrombin Time 13.7 sec (9.0-12.0)
[2018-08-26 07:15] LABS: Calcium 8.5 mg/dL (8.4-10.2); Magnesium 2.2 mg/dL (1.6-2.3); Potassium 2.9 mmol/L (3.5-5.1)
[2018-08-26] MEDS: PANTOPRAZOLE 40 MG TABLET PO SCH (07:52)
[2018-08-26] MEDS: IPRATROPIUM-ALBUTEROL 3 ML NEB INHALATION SCH ×4 (08:25→19:18)
[2018-08-26] MEDS ORDERED: POTASSIUM CHLORIDE 20 MEQ in WATER FOR INJECTION 1 100ML.BAG IVPB STA (11:01)
--- NOTE | 2018-08-26 11:31 | P.PN ---
Subjective Progress Note Date: 08/26/18 Principal diagnosis: Dysphagia Per conversation with attending family is requesting hospice. CT soft tissue neck 4.5 cm 3.5 semi-or transverse colonic mass. Family does not want PEG tube. Objective - Vital Signs Vital signs: Vital Signs Temp 97.1 F L 08/26/18 08:06 Pulse 68 08/26/18 08:48 Resp 17 08/26/18 08:06 BP 107/55 08/26/18 08:06 Pulse Ox 90 L 08/26/18 08:06 Intake & Output 08/25/18 08/26/18 08/26/18 18:59 06:59 18:59 Intake Total 1575 1000 Output Total 300 600 Balance 1275 400 Weight 76.5 kg 74.6 kg Intake: Intake, IV Titration 1575 1000 Amount Magnesium Sulfate-D5w Pmx 200 1 gm In Dextrose/Water 1 100ml.bag @ 100 mls/hr IVPB Q1H [facility] Rx#: [id number] Potassium Chloride 10 meq 400 In Water For Injection 1 100ml.bag @ 100 mls/hr IVPB Q1HR [facility] Rx#: [id number] Sodium Chloride 0.9% 1, 875 1000 000 ml @ 125 mls/hr IV . Q8H [facility] Rx#:[id number] cefTRIAXone 1 gm In 100 Sodium Chloride 0.9% 50 ml @ 100 mls/hr IVPB Q24HR [facility] Rx#:[id number] Output: Urine 300 600 Other: Voiding Method Indwelling Catheter Indwelling Catheter Indwelling Catheter - Exam General appearance: The patient is alert in no acute distress. HET: Head is normocephalic and atraumatic. Pupils are equal and reactive. Oropharynx is clear without lesions. Neck: Supple without lymphadenopathy. Trachea midline. Heart: S1 S2. Regular rate and rhythm. Lungs: Decreased bilaterally. Congested. Abdomen: Soft, nontender, nondistended with bowel sounds. No peritoneal signs. No palpable organomegaly or masses. Extremities: Normal skin color and turgor. No cyanosis, rash, ulceration, clubbing, or edema. Radial and pedal pulses are 2/4 bilaterally. Neurological: No focal deficits. Strength and sensation are grossly intact. - Labs CBC & Chem 7: 08/26/18 06:07 08/26/18 06:07 Labs: Abnormal Lab Results - Last 24 Hours (Table) 08/25/18 08/25/18 08/25/18 Range/Units 11:42 13:24 13:24 RDW (11.5-15.5) % PT 17.4 H (9.0-12.0) sec INR 1.8 H (<1.2) Potassium 3.1 L (3.5-5.1) mmol/L BUN (9-20) mg/dL Creatinine (0.66-1.25) mg/dL Glucose (74-99) mg/dL POC Glucose (mg/dL) 135 H (75-99) mg/dL Plasma Lactic Acid Duncan (0.7-2.0) mmol/L 08/25/18 08/25/18 08/25/18 Range/Units 16:41 18:32 20:24 RDW (11.5-15.5) % PT (9.0-12.0) sec INR (<1.2) Potassium (3.5-5.1) mmol/L BUN (9-20) mg/dL Creatinine (0.66-1.25) mg/dL Glucose (74-99) mg/dL POC Glucose (mg/dL) 200 H 129 H (75-99) mg/dL Plasma Lactic Acid Duncan 2.6 H* (0.7-2.0) mmol/L 08/26/18 08/26/18 08/26/18 Range/Units 05:28 06:07 06:07 RDW 15.9 H (11.5-15.5) % PT 13.7 H (9.0-12.0) sec INR 1.3 H (<1.2) Potassium (3.5-5.1) mmol/L BUN (9-20) mg/dL Creatinine (0.66-1.25) mg/dL Glucose (74-99) mg/dL POC Glucose (mg/dL) 146 H (75-99) mg/dL Plasma Lactic Acid Duncan (0.7-2.0) mmol/L 08/26/18 Range/Units 06:07 RDW (11.5-15.5) % PT (9.0-12.0) sec INR (<1.2) Potassium 2.9 L (3.5-5.1) mmol/L BUN 42 H (9-20) mg/dL Creatinine 1.35 H (0.66-1.25) mg/dL Glucose 163 H (74-99) mg/dL POC Glucose (mg/dL) (75-99) mg/dL Plasma Lactic Acid Duncan (0.7-2.0) mmol/L Microbiology - Last 24 Hours (Table) 08/25/18 01:11 Blood Culture - Preliminary Blood No Growth after 24 hours 08/25/18 00:51 Blood Culture - Preliminary Blood No Growth after 24 hours 08/24/18 21:55 Urine Culture - Final Urine,Catheterized Assessment and Plan (1) Dysphagia Narrative/Plan: 83-year-old male presents with a reported history of unintentional weight loss odynophagia dysphagia hemoptysis. CT soft tissue neck reports transverse glottic mass suspicious for neoplasm. Current Visit: Yes Status: Acute Code(s): R13.10 - DYSPHAGIA, UNSPECIFIED SNOMED Code(s): 09612503 (2) Hemoptysis Current Visit: Yes Status: Acute Code(s): R04.2 - HEMOPTYSIS SNOMED Code(s): 54976594 (3) Decreased oral intake Current Visit: Yes Status: Acute Code(s): R63.8 - OTHER SYMPTOMS AND SIGNS CONCERNING FOOD AND FLUID INTAKE SNOMED Code(s): 175238220 (4) Weight loss, non-intentional Current Visit: Yes Status: Acute Code(s): R63.4 - ABNORMAL WEIGHT LOSS SNOMED Code(s): 879541259 (5) Warfarin-induced coagulopathy Narrative/Plan: INR 1.3 corrected Current Visit: Yes Status: Acute Code(s): D68.32 - HEMORRHAGIC DISORD D/T EXTRINSIC CIRCULATING ANTICOAGULANTS; T45.515A - ADVERSE EFFECT OF ANTICOAGULANTS, INITIAL ENCOUNTER SNOMED Code(s): 09186147 Plan: 1. No further workup from a GI standpoint. Family is requesting hospice and declining PEG tube evaluation. We'll be available on an as-needed basis. Assessment and plan a care discussed with Dr. Cox
[2018-08-26 11:32] LABS: Glucose,Whole Blood 141 mg/dL (75-99)
--- NOTE | 2018-08-26 14:19 | P.PN ---
Subjective Progress Note Date: 08/26/18 (Delayed charting patient seen at approximately 9:30 AM) Principal diagnosis: coughing up blood Patient is a 83-year-old male with a history of A. fib and multiple strokes status post pacemaker on Coumadin therapy, COPD, CVA, and memory impairment who presented to the ER at direction of his daughter due to increased weakness and lethargy. Patient was also noted to have hemoptysis. In the ER he underwent an extensive evaluation. His he was found to have an INR greater than 10. His potassium was significantly low at 2.8. Creatinine elevated at 2.44, lactic acid 3.1, total bilirubin 1.5, albumin 3.2, and urinalysis was bland. Chest x-ray showed new mild atelectasis of the right lung base. He was also found to be hypoxic and started on nasal cannula. He was hypotensive with a blood pressure 72/47 which responded to 1 L fluid bolus. He was admitted to the selective unit for further monitoring. His given aggressive fluid hydration due to his acute kidney injury. His Coumadin level was reversed with vitamin K. His home medications were held secondary to hypotension. Daughter stated that he's been having weight loss and some dysphasia and therefore his made nothing by mouth and speech was consulted as well as ENT. GI was consulted for dysphagia. Straight cath was done which showed less than 60 mL's of urine was likely secondary to dehydration. CT chest abdomen and pelvis was ordered. This showed debris in the right bronchus intermedius, possible lesion in the upper tracheal wall. Cardiomegalu, CAD, pulm HTN, mild anasarca, trace right pleural effusion. It also showed multiple arterial aneurysms and bilateral renal lesions most consistent with cysts, as well as bladder wall thickening with pelvic ascitis. He was seen by ENT and underwent bedside nasopharyngeal laryngoscopy which demonstrated a left-sided vocal cord mass. This was followed up by CT soft tissue of the neck. This demonstrated a 4.5 x 3.5 cm glottic mass centered left of midline which extended through the cartilage posteriorly. There are scattered tiny foci of gas related to the left parotid gland duct. There is focal subcentimeter nodular findings within the thyroid. He underwent CT brain which showed no acute process. Patient seen and examined at bedside. Patient is aware that he is at [facility] and can't swallow. After reorienting him he remembers that he has a mass. He denies any pain, chest pain, shortness of breath, nausea, or vomiting. He de nies being hungry. He again is asking to go home. Objective - Vital Signs Vital signs: Vital Signs Temp 97.1 F L 08/26/18 08:06 Pulse 68 08/26/18 08:48 Resp 17 08/26/18 08:06 BP 107/55 08/26/18 08:06 Pulse Ox 90 L 08/26/18 08:06 Intake & Output 08/25/18 08/26/18 08/26/18 18:59 06:59 18:59 Intake Total 1575 1000 Output Total 300 600 Balance 1275 400 Weight 76.5 kg 74.6 kg Intake: Intake, IV Titration 1575 1000 Amount Magnesium Sulfate-D5w Pmx 200 1 gm In Dextrose/Water 1 100ml.bag @ 100 mls/hr IVPB Q1H [facility] Rx#: [id number] Potassium Chloride 10 meq 400 In Water For Injection 1 100ml.bag @ 100 mls/hr IVPB Q1HR [facility] Rx#: [id number] Sodium Chloride 0.9% 1, 875 1000 000 ml @ 125 mls/hr IV . Q8H [facility] Rx#:[id number] cefTRIAXone 1 gm In 100 Sodium Chloride 0.9% 50 ml @ 100 mls/hr IVPB Q24HR [facility] Rx#:[id number] Output: Urine 300 600 Other: Voiding Method Indwelling Catheter Indwelling Catheter Indwelling Catheter - Exam General: Ill appearing, no distress, appears at stated age Derm: Multiple areas of ecchymoses bilateral hands and arms, warm, dry Head: atraumatic, normocephalic, symmetric Eyes: EOMI, no lid lag, anicteric sclera Mouth: no lip lesion, mucus membranes moist, hoarse voice Cardiovascular: S1S2 reg, no murmur, positive posterior tibial pulse bilateral, Lungs: Decreased breath sounds bilateral, no rhonchi, no rales , no accessory muscle use Abdominal: soft, nontender to palpation, no guarding, no appreciable organomegaly Ext: no gross muscle atrophy, no edema, no contractures Neuro: CN II-XI grossly intact, no focal neuro deficits Psych: Alert, oriented, flat affect, still confused, agrees with me talking to Katlin. - Labs CBC & Chem 7: 08/26/18 06:07 08/26/18 06:07 Labs: Abnormal Lab Results - Last 24 Hours (Table) 08/25/18 08/25/18 08/25/18 Range/Units 11:42 13:24 13:24 RDW (11.5-15.5) % PT 17.4 H (9.0-12.0) sec INR 1.8 H (<1.2) Potassium 3.1 L (3.5-5.1) mmol/L BUN (9-20) mg/dL Creatinine (0.66-1.25) mg/dL Glucose (74-99) mg/dL POC Glucose (mg/dL) 135 H (75-99) mg/dL Plasma Lactic Acid Duncan (0.7-2.0) mmol/L 08/25/18 08/25/18 08/25/18 Range/Units 16:41 18:32 20:24 RDW (11.5-15.5) % PT (9.0-12.0) sec INR (<1.2) Potassium (3.5-5.1) mmol/L BUN (9-20) mg/dL Creatinine (0.66-1.25) mg/dL Glucose (74-99) mg/dL POC Glucose (mg/dL) 200 H 129 H (75-99) mg/dL Plasma Lactic Acid Duncan 2.6 H* (0.7-2.0) mmol/L 08/26/18 08/26/18 08/26/18 Range/Units 05:28 06:07 06:07 RDW 15.9 H (11.5-15.5) % PT 13.7 H (9.0-12.0) sec INR 1.3 H (<1.2) Potassium (3.5-5.1) mmol/L BUN (9-20) mg/dL Creatinine (0.66-1.25) mg/dL Glucose (74-99) mg/dL POC Glucose (mg/dL) 146 H (75-99) mg/dL Plasma Lactic Acid Duncan (0.7-2.0) mmol/L 08/26/18 Range/Units 06:07 RDW (11.5-15.5) % PT (9.0-12.0) sec INR (<1.2) Potassium 2.9 L (3.5-5.1) mmol/L BUN 42 H (9-20) mg/dL Creatinine 1.35 H (0.66-1.25) mg/dL Glucose 163 H (74-99) mg/dL POC Glucose (mg/dL) (75-99) mg/dL Plasma Lactic Acid Duncan (0.7-2.0) mmol/L Microbiology - Last 24 Hours (Table) 08/25/18 01:11 Blood Culture - Preliminary Blood No Growth after 24 hours 08/25/18 00:51 Blood Culture - Preliminary Blood No Growth after 24 hours 08/24/18 21:55 Urine Culture - Final Urine,Catheterized Assessment and Plan Assessment: 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 Patient likely needs laryngectomy and ecommends transfer to come on AND has obtained a excepting physician -Unable to swallow -Need to discuss with family potential transfer. Toxic metabolic encephalopathy -Likely secondary to acute kidney injury may be related to dementia -Supportive care -Evaluation and treatment of his acute kidney injury -CT of the brain without any acute intracranial abnormality Hypokalemia -Likely secondary to dehydration and poor oral intake -potassium replacement Acute kidney injury secondary to dehydration -Continue with IV fluids decreased likely secondary to congestion -Avoid additional nephrotoxic agents -Continue to hold Aldactone, lisinopril, hydrochlorothiazide, and Lasix -Continue Proscar Lactic acidosis -No signs of sepsis and likely secondary to ALEXSANDER in combination with metformin use -No indication to continue to repeat as it is down trending Diabetes mellitus type 2 -Hold metformin secondary to renal failure -Sliding-scale insulin -Check A1c as outpatient Acute on chronic hypoxic respiratory failure -Has not been using his O2 at home -Is supposed to use 2.5 L Severe protein calorie malnutrition associated with weight loss -Dietary supplementation once able to tolerate orals. Resolved: Coumadin coagulopathy hypomagnesemia Chronic: Hypertension Coronary artery disease COPD Memory impairment A. fib Recent history of tobacco abuse quit 2-3 days ago Contacted Katlin regarding Dr. Valadez recommendation of transfer to [facility]. She was on route to the hospital and this was discussed with her and her sister at length. For full documentation of conversation please see additional progress note of same date. Ultimately family has decided again transferred to [facility]. Patient has also expressed wishes that he does not want any surgical intervention. They would like to sign-on with hospice. Please see additional progress note for further details regarding discussion. Katlin [facility]- [phone] DVT prophylaxis: elevated INR Discussed with: Patient and nursing Anticipated discharge: 3-[address]: home A total of 35 minutes was spent on the care of this complex patient more than 50% of the time was spent in counseling and care coordination.
[2018-08-26 14:28] VITALS: RESP 18
--- NOTE | 2018-08-26 14:40 | P.PN ---
Progress Note - Text Progress Note Date: 08/26/18 Advanced Care Planning: Diagnosis: Glottic Mass Discussed with KATIE Vasquez KATLIN and Sister Discussion: Discussed with Katlin the findings of all testing including inability to swallow, glottic mass, ALEXSANDER, Protein calorie malnutrition, and hypokalemia. I advised them of Dr. Valadez's recommendation to transfer Pedro to [facility] for further evaluation and possible surgery. Patient was able to express to daughters that he does not want surgery. He had clear advanced directions and did not want to be kept alive and have any heroic measures. We discussed that his mass is compromising his airway and swallowing. I advised them that this mass will continue to grow and when it does there would be closer of his airway resulting in asphyxiation. They are aware. I also encouraged them to go to [facility] and receive more information regarding his diagnosis, prognosis, and possible outcomes. The patient and family do not have a desire to do this as they know he wanted to hospice in this situation and the patient is able to express that he just wants to go home. I told the family I would call Dr. Khan and inform him of their decision. Spoke with Dr. Khan and he was concerned that hospice is not in the patients best interest. There is concern that this mass will cause closure to the airway resulting in asphyxiation. This is not a pleasant way to and we may not be able to control his symptoms with medications. He does not agree with hospice and knows that the patient would be best served at [facility]. He does not want the patient to have to suffer and from asphyxiation. He asked me to inform the family of his expert opinion and encourage them to go to [facility]. I again had an extensive conversation with Katlin and her sister with the patient present. I informed them of Dr. Khan's recommendations to go to [facility] and concerns of unpleasant . I expressed in vivid detail what expiring of asphyxiation would look like. Patient again expressed that he just wants to go home. Daughter's have used hospice before and are familiar with morphine and ativan use. The would not want to put him through invasive procedures that he does not want. They want to keep him comfortable at home as long as possible with morphine and ativan. They would consider hospice house admission or [facility] hospice admission if not able to control symptoms at home. They want to respect their fathers wishes and are aware that he could pass from asphyxiation. They are also aware he had ALEXSANDER, hypokalemia and anasarca at admission due to severe protein calorie malnutrition and that he may from things such as ALEXSANDER prior to growth of the mass. They are very thankful to Dr. Valadez for expressing his opinions through me and are touched that he had their dads best interest at heart. This is not an easy decision for them, and they are prepared that he might suffer but they will do their best to prevent this. They also know he might suffer even more from surgery. They would like to proceed with hospice care and are making arrangements for 24 hours care at home. All questions answered to the best of my ability. A total of 50 minutes of face to face time was spent discussing advanced care planning.
[2018-08-26] MEDS ORDERED: MORPHINE SULFATE 2 MG/ML SYRINGE IVP PRN (14:46)
[2018-08-26] MEDS ORDERED: LORazepam 2 MG/ML INJ IV PRN (14:46)
[2018-08-26 16:41] LABS: Glucose,Whole Blood 140 mg/dL (75-99)
[2018-08-26 21:11] LABS: Glucose,Whole Blood 154 mg/dL (75-99)
[2018-08-27] MEDS: SODIUM CHLORIDE 0.9% 1,000 ML IV SCH ×2 (01:11→12:26)
[2018-08-27 03:25] VITALS: TEMP 97.2
[2018-08-27] MEDS: INSULIN ASPART (NovoLOG) 100 UNIT/ML VIAL SQ SCH ×2 (06:13→12:27)
[2018-08-27 06:14] LABS: Glucose,Whole Blood 154 mg/dL (75-99)
[2018-08-27] MEDS: methylPREDNISolone SOD SUCCI 125 MG/2 ML VIAL IV SCH ×2 (06:14→12:27)
[2018-08-27 07:13] LABS: INR 1.2 (<1.2); Prothrombin Time 12.8 sec (9.0-12.0)
[2018-08-27] MEDS: PANTOPRAZOLE 40 MG TABLET PO SCH (07:48)
[2018-08-27] MEDS: IPRATROPIUM-ALBUTEROL 3 ML NEB INHALATION SCH ×2 (08:26→11:52)
[2018-08-27] MEDS ORDERED: LORazepam 2 MG/ML INJ IV PRN (09:14)
[2018-08-27 11:10] LABS: Glucose,Whole Blood 137 mg/dL (75-99)
[2018-08-27 12:51] VITALS: PULSE 60
[2018-08-27 12:54] VITALS: BP 121/50
--- NOTE | 2018-08-28 15:54 | P.DS ---
Providers Date of admission: 08/24/18 21:11 Expected date of discharge: 08/27/18 Attending physician: Ailyn Eldridge MD Consults: 08/25/18 00:06 Consult Physician Routine Consulting Provider: Tushar Valadez Consult Reason/Comments: voice changes , dysphagia, weight loss Do you want consulting provider notified?: Yes Primary care physician: Babak [facility] Course: Patient is an 83-year-old male with a PMH of A. fib on Coumadin, COPD, CVA, and memory impairment who presented to the ED for worsening lethargy, debility, and an episode of hemoptysis at home. In the ED, the patient underwent an extensive evaluation. He was noted to be hypotensive at 72/47 and hypoxic, requiring IV fluids and supplemental oxygen. The patient was noted to be supratherapeutic Coumadin and had a lactic acidosis at 3.1. Upon further history, it was noted that the patient also had weight loss and dysphagia. ENT was consulted and a CT chest abdomen pelvis was ordered which revealed a possible lesion in the upper tracheal wall. The patient underwent a nasopharyngeal laryngoscopy which showed a left-sided vocal cord mass. A subsequent CT soft tissue of the neck revealed a 4.5 x 2.5 cm necrotic mass, extending through the cartilage posteriorly along with scattered tiny foci of gas in the left parotid gland duct. Multiple discussions were had with the patient and his family who reiterated the patient's wishes of wanting to home and not wanting to undergo any surgical procedures or have any heroic measures be performed. The patient was subsequently made DNR/DNI and was discharged home w/ home-hospice services. Physical Examination General: Non-toxic, in no acute distress, appears stated age, normal weight HEENT: NC/AT, anicteric sclerae, moist conjunctiva, no lid-lag, PERRLA Cardiovascular: S1/S2 wnl, no murmurs, rubs, or gallops Lungs: Poor air entry nadia, normal respiratory effort, no accessory muscle use, hoarse voice Abdominal: Soft, non-tender, non-distended, no guarding, rebound, or rigidity Skin: Warm, dry Extremities: No edema or contractures Psychiatric: Alert and oriented to person, and place, appropriate affect Neuro: CN II-XII grossly intact, Strength 5/5 in all 4 extremities, Speech intact, Sensation to light touch grossly intact throughout Discharge diagnosis: 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 Patient Condition at Discharge: Fair Plan - Discharge Summary Discharge Rx Participant: No New Discharge Prescriptions: New LORazepam [Ativan] 1 mg PO Q4H PRN #42 tab PRN Reason: Agitation Atropine Ophth Soln 1% 5Ml [Isopto Atropine 1% 5Ml] 2 drop SUBLINGUAL Q4HR PRN #2 bottle PRN Reason: Secretions MORPHINE ORAL SORAYA CONC 20mg/mL [Roxanol Oral Soln Conc 20MG/ML] 5 mg PO Q4H PRN #20 ml PRN Reason: Pain/Discomfort Discontinued Lisinopril-Hctz 20-12.5 mg [Zestoretic 20-12.5] 1 each PO DAILY amLODIPine BESYLATE [Norvasc] 5 mg PO DAILY Finasteride [Proscar] 5 mg PO PC-SUPPER Tamsulosin HCl [Flomax] 0.4 mg PO AC-SUPPER Warfarin [Coumadin] 5 mg PO MOTUWETHFRSA metFORMIN HCL [Glucophage] 500 mg PO DAILY Furosemide [Lasix] 20 mg PO DAILY Allopurinol [Zyloprim] 100 mg PO DAILY Spironolactone [Aldactone] 12.5 mg PO Q48H Discharge Medication List Atropine Ophth Soln 1% 5Ml [Isopto Atropine 1% 5Ml] 2 drop SUBLINGUAL Q4HR PRN #2 bottle 08/26/18 [Rx] LORazepam [Ativan] 1 mg PO Q4H PRN #42 tab 08/26/18 [Rx] MORPHINE ORAL SORAYA CONC 20mg/mL [Roxanol Oral Soln Conc 20MG/ML] 5 mg PO Q4H PRN #20 ml 08/26/18 [Rx] Activity/Diet/Wound Care/Special Instructions: home with [facility]ice Discharge Disposition: HOME WITH HOSPICE
== END 2018-08-27 13:06 | disposition hospice, home (50) | DRG 146 ==
LOC: EC 18:28 → 3SCARD 21:11
PROVIDERS: ADMIT Internal Medicine; ATTEND Internal Medicine
PROC: 0CJY8ZZ Inspection of Mouth and Throat, Via Natural or Artificial Opening Endoscopic (ICD-10-PCS; principal; 2018-08-25)
DX: C32.9 Malignant neoplasm of larynx, unspecified (principal); J96.21 Acute and chronic respiratory failure with hypoxia; N17.0 Acute kidney failure with tubular necrosis; E43 Unspecified severe protein-calorie malnutrition; G93.41 Metabolic encephalopathy; R04.2 Hemoptysis; E87.2 Acidosis; J44.1 Chronic obstructive pulmonary disease with (acute) exacerbation; R17 Unspecified jaundice; J98.11 Atelectasis; I50.9 Heart failure, unspecified; I11.0 Hypertensive heart disease with heart failure; I95.9 Hypotension, unspecified; I48.91 Unspecified atrial fibrillation; J84.10 Pulmonary fibrosis, unspecified; I27.20 Pulmonary hypertension, unspecified; E86.0 Dehydration; E83.42 Hypomagnesemia; R13.10 Dysphagia, unspecified; E11.9 Type 2 diabetes mellitus without complications; I25.10 Atherosclerotic heart disease of native coronary artery without angina pectoris; H35.30 Unspecified macular degeneration; E87.6 Hypokalemia; F41.9 Anxiety disorder, unspecified; F17.200 Nicotine dependence, unspecified, uncomplicated; T45.515A Adverse effect of anticoagulants, initial encounter; Z66 Do not resuscitate; J38.7 Other diseases of larynx; Z68.26 Body mass index [BMI] 26.0-26.9, adult; Z79.01 Long term (current) use of anticoagulants; Z79.899 Other long term (current) drug therapy; Z79.84 Long term (current) use of oral hypoglycemic drugs; Z86.73 Personal history of transient ischemic attack (TIA), and cerebral infarction without residual deficits; Z99.81 Dependence on supplemental oxygen; Z90.49 Acquired absence of other specified parts of digestive tract; Z95.0 Presence of cardiac pacemaker; Z91.14 Patient's other noncompliance with medication regimen; Z71.3 Dietary counseling and surveillance
CPT/HCPCS: 36415; 51701; 70450; 70490; 71046; 71250; 74176; 80048; 80053; 81001; 83605; 83735; 83880; 84100; 84132; 84443; 84484; 85025; 85027; 85610; 85730; 87040; 87086; 93005; 94640; 94760; 96361; 96374; 96375; 99291